=== PATIENT | male | born 1945 | race Caucasian/White ===

== ENCOUNTER 2016-07-26 14:35 | Emergency (ER) ==
[2016-07-26] MEDS ORDERED: NS 500 ML IV ONE (14:51)
--- NOTE | 2016-07-26 15:02 | PROVIDER DOCUMENTATION ---
HPI-Abdominal Pain/GI Problem - General Chief Complaint: Diarrhea Stated Complaint: GENERAL Time Seen by Provider: 07/26/16 14:44 Allergies/Adverse Reactions: Patient Allergies Allergy/AdvReac Type Severity Reaction Status Date / Time nitroglycerin Allergy HEADACHE Verified 07/26/16 15:21 montelukast sodium * AdvReac eyes water Verified 07/26/16 15:21 [From [facility]] Home Medications: Home Medication List Medication Instructions Recorded Confirmed Last Taken Type ATORVAstatin [Lipitor] 40 mg PO QHS 08/09/12 07/26/16 07/26/16 History Budesonide/Formoterol Inhaler 2 puff INH RTBID 08/09/12 07/26/16 07/26/16 09:00 History [Symbicort 160/4.5 Microgm Inhaler] Diltiazem HCl [Cartia Xt] 180 mg PO BID 08/09/12 07/26/16 07/26/16 09:00 History Glipizide [Glipizide Xl] 10 mg PO BID 08/09/12 07/26/16 07/26/16 09:00 History Losartan [Cozaar] 50 mg PO DAILY 05/08/14 07/26/16 07/26/16 09:00 History Digoxin 125 mcg PO DAILY 01/21/15 07/26/16 07/26/16 09:00 History Furosemide 40 mg PO DAILY 01/21/15 07/26/16 07/26/16 09:00 History Omeprazole 40 mg PO DAILY 01/21/15 07/26/16 07/26/16 06:00 History Warfarin [Coumadin] 2 mg PO QHS 01/21/15 07/26/16 07/21/16 History Metoprolol Succinate E.r. [Toprol 25 mg PO BID 05/03/16 07/26/16 07/26/16 09:00 History Xl] Hum Insulin NPH/Reg Insulin Hm 12 unit SQ QPM 06/22/16 07/26/16 07/25/16 16:00 History [Novolin 70-30 [place]] Acetaminophen [Tylenol] 1,000 mg PO Q6H #0 tablet 07/06/16 07/26/16 07/26/16 12: 00 Rx Albuterol 2.5MG/Ipratrop 0.5MG 3 ml INH Q4H PRN PRN #0 neb 07/06/16 07/26/16 Rx [Duoneb (A & A)] Docusate Sodium [Colace] 100 mg PO BID #0 capsule 07/06/16 07/26/16 07/26/16 09: 00 Rx Magnesium Hydroxide [Milk of 30 ml PO Q6H PRN PRN #0 udc 07/06/16 07/26/16 Unknown Rx Magnesia] Oxycodone I.r. [Oxy Ir] 5 - 10 mg PO Q3H PRN PRN #60 07/06/16 07/26/16 Unknown Rx capsule Polyethylene Glycol 3350 [Miralax] 17 gm PO DAILY #0 powder, packet 07/06/1607/26/16 09:00 Rx Pregabalin [Lyrica] 75 mg PO BID #60 capsule 07/06/16 07/26/16 07/26/16 09:00 Rx Simethicone Chew [Mylicon] 80 mg PO PRN PRN #0 tablet 07/06/16 07/26/16 Unknown Rx Tramadol [Ultram] 100 mg PO Q6H #120 tablet 07/06/16 07/26/16 07/26/16 12:00 Rx Hum Insulin NPH/Reg Insulin Hm 16 unit SQ QAM 07/26/16 07/26/16 07/26/16 08:00 History [Novolin 70-30 100 Unit/ml Vial] Loperamide HCl [Anti-Diarrhea] 2 mg PO Q6H #30 tablet 07/26/16 Unknown Rx Tamsulosin HCl 0.4 mg PO QHS 07/26/16 07/26/16 07/25/16 History - History of Present Illness-ABD Nature of Presenting Problems: Pt with prolonged stay in rehab after right total knee replacement. Has been having diarrhea lately that has worsened the last few days. Also with elevated INR. Patient is not sure why rehab sent him to the ER today. He has also had a cough for a few weeks. Is on supplemental O2 at rehab. Sat 91% on O2. Abdominal Pain Onset Location: reports: generalized abdomen Severity in ED: reports: mild Onset/Duration: reports: other (several weeks) Timing: reports: still present Associated Symptoms: reports: cough, diarrhea, fatigue, joint pain (right knee) , shortness of breath, weakness. denies: chest pain, fever/chills, sinus congestion/drainage, vomiting Last BM: this morning Dark Stools Present?: reports: none noticed Rectal Bleeding: denies: bleeding without stool, bloody diarrhea Review of Systems - Adult - REVIEW OF SYSTEMS - ADULT Constitutional: denies: chills, fever Eyes: reports: no symptoms reported Ears, Nose, Mouth & Throat: reports: no symptoms reported Cardiovascular: reports: no symptoms reported Respiratory: reports: cough, shortness of breath Gastrointestinal: reports: diarrhea. denies: abdominal pain, hematemesis, nausea, rectal bleeding, vomiting Genitourinary: denies: dysuria Musculoskeletal: reports: joint pain. denies: joint swelling Integumentary: reports: no symptoms reported Neurological: reports: no symptoms reported Psychiatric: reports: no symptoms reported Endocrine: reports: no symptoms reported Hematologic/Lymphatic: reports: no symptoms reported Allergic/Immunologic: reports: no symptoms reported All Other Systems: Reviewed and Negative Past History - Adult - PAST MEDICAL HISTORY-ADULT Review of Records: reports: Nursing Assessment Review, Medications Reviewed Cardiovascular: reports: A-Fib, CAD, HTN, hyperlipidemia, pacemaker, other ( dextrocardia) Respiratory: reports: COPD Endocrine/Immune: reports: Diabetes - PRIOR SURGERIES/PROCEDURES Surgical/Procedure History: reports: cholecystectomy, pacemaker, hernia repair - IMMUNIZATION STATUS Childhood Immunizations: See Nurse Assessment Flu Vaccine: See Nurse Assessment - SOCIAL HISTORY Smoking: non-smoker Physical Exam-General - PHYSICAL EXAM-ADULT Initial Vital Signs Reviewed: Yes - CONSTITUTIONAL General Appearance: appears well, alert, no apparent distress - EYES Eyes: PERRL/EOMI, pink conjunctivae - HEAD, EARS, NOSE, MOUTH & THROAT HENMT: normocephalic/atraumatic, other (dry MM's) - NECK Neck: non-tender, full range of motion, supple - RESPIRATORY Respiratory: no pleuratic chest pain, no respiratory distress, decreased breath sounds, wheezing (mild expiratory). negative: rales, rhonchi - CARDIOVASCULAR Cardiovascular: regular rate, rhythm, no gallop, no JVD - GASTROINTESTINAL (ABDOMEN) Abdominal Exam: soft, no organomegaly, no pulsatile mass, abnormal bowel sounds (hypoactive), distended (obese), tenderness (mild diffusely). negative: guarding, rigid, rebound - LYMPHATIC Lymphatic: no adenopathy. negative: enlargement - MUSCULOSKELETAL Back Exam: normal inspection, no CVA tenderness, no vertebral tenderness Extremity: normal range of motion, normal capillary refill, pedal edema (1+), tenderness (over right knee). negative: erythema - SKIN Integumentary: normal color, normal turgor, warm/dry, other (healing right knee surgical incision) - NEUROLOGIC Neurologic: grossly normal - PSYCHIATRIC Psych/Mental Status: normal mood/affect Progress - PLAN OF CARE/RESULTS Progress/Plan/Lab Results: Vital Signs Temp Pulse Resp BP Pulse Ox 07/26/16 16:20 92 H 22 07/26/16 14:41 98.2 F 92 H 22 150/66 96 nitroglycerin Allergy (Verified 07/26/16 15:21) HEADACHE [facility] Adverse Reaction (Verified 07/26/16 15:21) eyes water ATORVAstatin [Lipitor] 40 mg PO QHS 08/09/12 Budesonide/Formoterol Inhaler [Symbicort 160/4.5 Microgm Inhaler] 2 puff INH RTBID 08/09/12 Diltiazem HCl [Cartia Xt] 180 mg PO BID 08/09/12 Glipizide [Glipizide Xl] 10 mg PO BID 08/09/12 Losartan [Cozaar] 50 mg PO DAILY 05/08/14 Digoxin 125 mcg PO DAILY 01/21/15 Furosemide 40 mg PO DAILY 01/21/15 Omeprazole 40 mg PO DAILY 01/21/15 Warfarin [Coumadin] 2 mg PO QHS 01/21/15 Metoprolol Succinate E.r. [Toprol Xl] 25 mg PO BID 05/03/16 Hum Insulin NPH/Reg Insulin Hm [Novolin 70-30 [place]] 12 unit SQ QPM 06/22/16 Acetaminophen [Tylenol] 1,000 mg PO Q6H #0 tablet 07/06/16 Albuterol 2.5MG/Ipratrop 0.5MG [Duoneb (A & A)] 3 ml INH Q4H PRN PRN #0 neb 11/14 Docusate Sodium [Colace] 100 mg PO BID #0 capsule 07/06/16 Magnesium Hydroxide [Milk of Magnesia] 30 ml PO Q6H PRN PRN #0 udc 07/06/16 Oxycodone I.r. [Oxy Ir] 5 - 10 mg PO Q3H PRN PRN #60 capsule 07/06/16 Polyethylene Glycol 3350 [Miralax] 17 gm PO DAILY #0 powder, packet 07/06/16 Pregabalin [Lyrica] 75 mg PO BID #60 capsule 07/06/16 Simethicone Chew [Mylicon] 80 mg PO PRN PRN #0 tablet 07/06/16 Tramadol [Ultram] 100 mg PO Q6H #120 tablet 07/06/16 Hum Insulin NPH/Reg Insulin Hm [Novolin 70-30 100 Unit/ml Vial] 16 unit SQ QAM 07/26/16 Tamsulosin HCl 0.4 mg PO QHS 07/26/16 Laboratory 07/26/16 07/26/16 07/26/16 15:00 15:00 15:00 WBC 12.22 H RBC 4.54 L Hgb 12.7 L Hct 40.3 L MCV 88.8 MCH 28.0 MCHC 31.5 L RDW Std Deviation 18.2 H Plt Count 289 MPV 12.2 H Immature Gran % (Auto) 0.5 Neut % (Auto) 75.0 Lymph % (Auto) 13.5 L [place] % (Auto) 9.3 Eos % (Auto) 1.5 Baso % (Auto) 0.2 Immature Gran # (Auto) 0.06 H Neut # (Auto) 9.17 H Lymph # (Auto) 1.65 [place] # (Auto) 1.14 H Eos # (Auto) 0.18 Baso # (Auto) 0.02 PT 45.5 H INR 4.23 PTT (Actin FS) 51.0 H Sodium 147 H Potassium 3.8 Chloride 106 Carbon Dioxide 29 Anion Gap 12 BUN 41 H Creatinine 2.1 H Estimated GFR/1.73 m2 31 BUN/Creatinine Ratio 20 Glucose 74 Calculated Osmolality 301 Calcium 8.4 L Total Bilirubin 0.27 AST 31 ALT 42 Alkaline Phosphatase 92 Total Protein 6.8 Albumin 2.9 L Globulin 3.9 Albumin/Globulin Ratio 0.7 - XRAY 1 XRAY Study: Chest, Abdomen Impression: Normal Departure - Departure Time of Disposition Order: 17:17 DIAGNOSIS: Diarrhea Qualifiers: Diarrhea type: unspecified type Qualified Code(s): R19.7 - Diarrhea, unspecified DIAGNOSIS: (Ruled Out): C. difficile colitis Disposition: HOME 01 Certified Medical Emergency: Emergent Condition: Stable Additional Instructions: Increase fluids. ED Follow Up Instructions: You have been treated by a care provider in the Emergency Department. These instructions are being provided to you so you can have an understanding of how to care for yourself upon discharge. Upon discharge from the Emergency Department, you are responsible for making arrangements for follow-up care by a physician of your choice. Take all prescribed medications as directed. Return to the Emergency Department immediately for any new or worsening symptoms. You may call the Physician Referral phone number at [phone] to obtain a list of Physicians who are taking new patients. Prescriptions: Loperamide HCl [Anti-Diarrhea] 2 mg PO Q6H #30 tablet
[2016-07-26] MEDS ORDERED: DUONEB (A & A) INH ONE (15:07)
[2016-07-26 15:23] LABS: MANUAL DIFF NEEDED? NO
[2016-07-26 15:27] LABS: BASO% 0.2 % (0.0-0.8); EOS# 0.18 X1000 (0.0-0.7); EOS% 1.5 % (0.0-10.0); HEMATOCRIT 40.3 % (42.0-52.0); HEMOGLOBIN 12.7 g/dL (14.0-18.0); IMM GRAN# 0.06 X1000 (0.0-0.04); IMM GRAN% 0.5 % (0.0-0.5); LYMPH# 1.65 X1000 (1.2-3.4); LYMPH% 13.5 % (20.5-51.1); MCHC 31.5 g/dL (33-37); MCV 88.8 FL (81-99); MONO# 1.14 X1000 (0.11-0.59); MONO% 9.3 % (1.7-9.3); MPV 12.2 FL (7.4-10.4); PLT 289 X1000 (130-400); RBC 4.54 XMIL (4.7-6.1)
[2016-07-26 15:47] LABS: INR 4.23; PROTIME 45.5 Seconds (9.2-11.7)
[2016-07-26 15:53] LABS: ALBUMIN 2.9 g/dL (3.5-5.0); CALCIUM 8.4 mg/dL (8.8-10.2); POTASSIUM 3.8 mmol/L (3.5-5.1); TOTAL BILIRUBIN 0.27 mg/dL (0.20-1.00); TOTAL PROTEIN 6.8 g/dL (6.3-8.3)
--- NOTE | 2016-07-26 16:25 | Diag Imaging Result Document ---
PROCEDURE NAME: FLAT/UPRIGHT ABD/1 VIEW CHEST - 07/26/2016 FLAT AND UPRIGHT ABDOMEN: FINDINGS: There is gas throughout the colon. The stomach is not distended and there is no evidence of small bowel dilatation. There is no evidence of organomegaly or mass. There is severe degenerative change in the right hip. IMPRESSION: Nonspecific abdomen. No evidence of obstruction. AP CHEST: FINDINGS: There is dextrocardia. There is an epicardial pacemaker present on the right. There are calcifications in the left pleura. Overall, there has been no significant change in the appearance of the chest since 07/02/2016. IMPRESSION: Stable chest.
[2016-07-26] MEDS ORDERED: IMODIUM PO ONE (17:20)
[2016-07-26 17:51] VITALS: BP 149/61
== END 2016-07-26 19:08 ==
LOC: EDBD → ED 14:35
DX: R19.7 Diarrhea, unspecified (principal); R05 Cough; R53.83 Other fatigue; M25.561 Pain in right knee; R06.02 Shortness of breath; R53.1 Weakness; R06.2 Wheezing; R19.15 Other abnormal bowel sounds; Z79.899 Other long term (current) drug therapy; R14.0 Abdominal distension (gaseous); R10.819 Abdominal tenderness, unspecified site; R60.0 Localized edema; I48.91 Unspecified atrial fibrillation; I10 Essential (primary) hypertension; E78.5 Hyperlipidemia, unspecified; J44.9 Chronic obstructive pulmonary disease, unspecified; E11.9 Type 2 diabetes mellitus without complications; Z79.01 Long term (current) use of anticoagulants; Z79.4 Long term (current) use of insulin; Z95.0 Presence of cardiac pacemaker; Z96.651 Presence of right artificial knee joint; Z99.81 Dependence on supplemental oxygen
CPT/HCPCS: 74022; 80053; 85025; 85610; 85730; 87040; 87324; 94640; J7040

== ENCOUNTER 2016-07-28 12:31 | Emergency (ER) ==
--- NOTE | 2016-07-28 13:01 | PROVIDER DOCUMENTATION ---
HPI-General Adult - General Source: patient - History of Present Illness -Gen Adult Nature of Presenting Problems: Patient is a71 y/o M that presents to the ER with generalized weakness, shortness of breath, and diarrhea. HE was seen 2 days ago for the diarrhea and treated in the ER. patient just finished a 21 day rehab for knee replacement. He denies chest pain or fever/chills. No n/v Location of Pain/Injury: reports: generalized Pain Radiation: reports: no radiation Quality of Pain: reports: aching Severity: reports: mild Onset/Duration: reports: unsure Timing: reports: still present, constant Context/Activities at Onset: reports: other (recent surgery) Modifying Factors: improves with: nothing Associated Symptoms: reports: diarrhea, shortness of breath, weakness. denies: back/neck pain, chest pain, constipation, dizziness, fever/chills, genitourinary problems, nausea Similar Symptoms Previously?: Yes Recently seen or treated by another doctor?: Yes <Praneeth Andrade - Last Filed: 07/28/16 16:48> <Demetrio Franz I - Last Filed: 07/28/16 16:56> - General Chief Complaint: General Adult Stated Complaint: WEAKNESS Time Seen by Provider: 07/28/16 12:36 Allergies/Adverse Reactions: Patient Allergies Allergy/AdvReac Type Severity Reaction Status Date / Time nitroglycerin Allergy HEADACHE Verified 07/28/16 12:46 montelukast sodium * AdvReac eyes water Verified 07/28/16 12:46 [From [facility]] Home Medications: Home Medication List Medication Instructions Recorded Confirmed Last Taken Type ATORVAstatin [Lipitor] 40 mg PO QHS 08/09/12 07/28/16 07/27/16 History Budesonide/Formoterol Inhaler 2 puff INH RTBID 08/09/12 07/28/16 07/28/16 History [Symbicort 160/4.5 Microgm Inhaler] Diltiazem HCl [Cartia Xt] 180 mg PO BID 08/09/12 07/28/16 07/28/16 History Glipizide [Glipizide Xl] 10 mg PO BID 08/09/12 07/28/16 07/28/16 History Losartan [Cozaar] 50 mg PO DAILY 05/08/14 07/28/1617 History Digoxin 125 mcg PO DAILY 01/21/15 07/28/16 07/28/16 History Furosemide 40 mg PO DAILY 01/21/15 07/28/16 07/28/16 History Omeprazole 40 mg PO DAILY 01/21/15 07/28/16 07/28/16 History Warfarin [Coumadin] 2 mg PO QHS 01/21/15 07/28/16 07/27/16 History Metoprolol Succinate E.r. [Toprol 25 mg PO BID 05/03/16 07/28/16 07/28/16 History Xl] Hum Insulin NPH/Reg Insulin Hm 12 unit SQ QPM 06/22/16 07/28/16 07/28/16 History [Novolin 70-30 [place]] Acetaminophen [Tylenol] 1,000 mg PO Q6H #0 tablet 07/06/16 07/28/16 07/28/16 Rx Albuterol 2.5MG/Ipratrop 0.5MG 3 ml INH Q4H PRN PRN #0 neb 07/06/16 07/28/16 Rx [Duoneb (A & A)] Docusate Sodium [Colace] 100 mg PO BID #0 capsule 07/06/16 07/28/16 07/28/16 Rx Magnesium Hydroxide [Milk of 30 ml PO Q6H PRN PRN #0 udc 07/06/16 07/28/1607/28 Rx Magnesia] Oxycodone I.r. [Oxy Ir] 5 - 10 mg PO Q3H PRN PRN #60 07/06/16 07/28/16 07/28/16 Rx capsule Polyethylene Glycol 3350 [Miralax] 17 gm PO DAILY #0 powder, packet 07/06/1607/28/16 Rx Pregabalin [Lyrica] 75 mg PO BID #60 capsule 07/06/16 07/28/16 07/28/16 Rx Simethicone Chew [Mylicon] 80 mg PO PRN PRN #0 tablet 07/06/16 07/28/16 Rx Tramadol [Ultram] 100 mg PO Q6H #120 tablet 07/06/16 07/28/16 07/28/16 Rx Hum Insulin NPH/Reg Insulin Hm 16 unit SQ QAM 07/26/16 07/28/16 07/28/16 History [Novolin 70-30 100 Unit/ml Vial] Loperamide HCl [Anti-Diarrhea] 2 mg PO Q6H #30 tablet 07/26/16 07/28/16 Rx Tamsulosin HCl 0.4 mg PO QHS 07/26/16 07/28/16 07/27/16 History Review of Systems - Adult - REVIEW OF SYSTEMS - ADULT Constitutional: reports: fatique. denies: chills, fever Eyes: reports: no symptoms reported Ears, Nose, Mouth & Throat: reports: no symptoms reported Cardiovascular: denies: chest pain, palpitations, syncope Respiratory: reports: shortness of breath. denies: cough, wheezing Gastrointestinal: reports: diarrhea. denies: abdominal pain, nausea, vomiting Genitourinary: reports: no symptoms reported Musculoskeletal: reports: muscle weakness. denies: joint swelling Integumentary: reports: no symptoms reported Neurological: reports: no symptoms reported Psychiatric: reports: no symptoms reported Endocrine: reports: no symptoms reported Hematologic/Lymphatic: reports: no symptoms reported Allergic/Immunologic: reports: no symptoms reported All Other Systems: Reviewed and Negative <Praneeth Andrade - Last Filed: 07/28/16 16:48> Past History - Adult - PAST MEDICAL HISTORY-ADULT Review of Records: reports: Old Records Reviewed, Nursing Assessment Review, Medications Reviewed Major Childhood Illnesses: reports: denies history Cardiovascular: reports: A-Fib, CAD, HTN, hyperlipidemia, pacemaker, other ( dextrocardia) Respiratory: reports: COPD Gastrointestinal: reports: denies history Obstetrical/Gynecological: reports: denies history Genitourinary: reports: denies history Musculoskeletal: reports: denies history Neurological: reports: denies history Endocrine/Immune: reports: Diabetes Other Conditions: reports: denies history - PRIOR SURGERIES/PROCEDURES Surgical/Procedure History: reports: cholecystectomy, pacemaker, hernia repair - IMMUNIZATION STATUS Childhood Immunizations: See Nurse Assessment Flu Vaccine: See Nurse Assessment - SOCIAL HISTORY Living Situation: family <Praneeth Andrade - Last Filed: 07/28/16 16:48> Physical Exam-General - PHYSICAL EXAM-ADULT Initial Vital Signs Reviewed: Yes - CONSTITUTIONAL General Appearance: alert, other (ill appearing) - EYES Eyes: PERRL/EOMI, pink conjunctivae - HEAD, EARS, NOSE, MOUTH & THROAT HENMT: normocephalic/atraumatic, moist mucous membranes, normal ENT inspection - NECK Neck: full range of motion, normal inspection. negative: lymphadenopathy - RESPIRATORY Respiratory: lungs clear, normal breath sounds, no respiratory distress, no accessory muscle use - CARDIOVASCULAR Cardiovascular: regular rate, rhythm, no edema, no murmur - GASTROINTESTINAL (ABDOMEN) Abdominal Exam: normal bowel sounds, non tender, soft, no organomegaly, no pulsatile mass - MUSCULOSKELETAL Extremity: no pedal edema, no calf tenderness, normal capillary refill, pelvis stable. negative: joint effusion - SKIN Integumentary: normal color, warm/dry - NEUROLOGIC Neurologic: grossly normal, no motor/sensory deficits - PSYCHIATRIC Psych/Mental Status: normal mood/affect, normal thought content, normal thought process, oriented x 3 <Praneeth Andrade - Last Filed: 07/28/16 16:48> Progress - PLAN OF CARE/RESULTS Progress/Plan/Lab Results: Vital Signs Temp Pulse Resp BP Pulse Ox 07/28/16 15:03 82 18 143/63 95 07/28/16 12:32 98.5 F 96 H 18 137/84 93 L nitroglycerin Allergy (Verified 07/28/16 12:46) HEADACHE montelukast sodium * [From [facility]] Adverse Reaction (Verified 07/28/16 12:46) eyes water ATORVAstatin [Lipitor] 40 mg PO QHS 08/09/12 Budesonide/Formoterol Inhaler [Symbicort 160/4.5 Microgm Inhaler] 2 puff INH RTBID 08/09/12 Diltiazem HCl [Cartia Xt] 180 mg PO BID 08/09/12 Glipizide [Glipizide Xl] 10 mg PO BID 08/09/12 Losartan [Cozaar] 50 mg PO DAILY 05/08/14 Digoxin 125 mcg PO DAILY 01/21/15 Furosemide 40 mg PO DAILY 01/21/15 Omeprazole 40 mg PO DAILY 01/21/15 Warfarin [Coumadin] 2 mg PO QHS 01/21/15 Metoprolol Succinate E.r. [Toprol Xl] 25 mg PO BID 05/03/16 Hum Insulin NPH/Reg Insulin Hm [Novolin 70-30 [place]] 12 unit SQ QPM 06/22/16 Acetaminophen [Tylenol] 1,000 mg PO Q6H #0 tablet 07/06/16 Albuterol 2.5MG/Ipratrop 0.5MG [Duoneb (A & A)] 3 ml INH Q4H PRN PRN #0 neb 11/14 Docusate Sodium [Colace] 100 mg PO BID #0 capsule 07/06/16 Magnesium Hydroxide [Milk of Magnesia] 30 ml PO Q6H PRN PRN #0 udc 07/06/16 Oxycodone I.r. [Oxy Ir] 5 - 10 mg PO Q3H PRN PRN #60 capsule 07/06/16 Polyethylene Glycol 3350 [Miralax] 17 gm PO DAILY #0 powder, packet 07/06/16 Pregabalin [Lyrica] 75 mg PO BID #60 capsule 07/06/16 Simethicone Chew [Mylicon] 80 mg PO PRN PRN #0 tablet 07/06/16 Tramadol [Ultram] 100 mg PO Q6H #120 tablet 07/06/16 Hum Insulin NPH/Reg Insulin Hm [Novolin 70-30 100 Unit/ml Vial] 16 unit SQ QAM 07/26/16 Loperamide HCl [Anti-Diarrhea] 2 mg PO Q6H #30 tablet 07/26/16 Tamsulosin HCl 0.4 mg PO QHS 07/26/16 Laboratory 07/28/16 07/28/16 07/28/16 13:26 13:26 13:26 WBC 10.24 RBC 3.90 L Hgb 10.8 L Hct 34.4 L MCV 88.2 MCH 27.7 MCHC 31.4 L RDW Std Deviation 17.5 H Plt Count 238 MPV 12.1 H Immature Gran % (Auto) 0.3 Neut % (Auto) 65.4 Lymph % (Auto) 24.1 [place] % (Auto) 9.2 Eos % (Auto) 0.7 Baso % (Auto) 0.3 Immature Gran # (Auto) 0.03 Neut # (Auto) 6.70 H Lymph # (Auto) 2.47 [place] # (Auto) 0.94 H Eos # (Auto) 0.07 Baso # (Auto) 0.03 PT 26.6 H D INR 2.49 D PTT (Actin FS) 41.6 H Sodium 147 H Potassium 4.1 Chloride 108 H Carbon Dioxide 28 Anion Gap 11 BUN 36 H Creatinine 2.2 H Estimated GFR/1.73 m2 30 BUN/Creatinine Ratio 16 Glucose 184 H D Calculated Osmolality 305 Calcium 8.2 L Total Bilirubin 0.41 AST 24 ALT 30 Alkaline Phosphatase 73 Total Protein 6.1 L Albumin 2.4 L Globulin 3.7 Albumin/Globulin Ratio 0.6 Lipase 26 Orders Category Date Time Status CBC WITH DIFF [HEME] Stat Lab 07/28/16 13:26 Completed COMPREHENSIVE METABOLIC PANEL [CHEM] Stat Lab 07/28/16 13:26 Completed LIPASE [CHEM] Stat Lab 07/28/16 13:26 Completed PROTIME WITH INR [COAG] Stat Lab 07/28/16 13:26 Completed PTT [COAG] Stat Lab 07/28/16 13:26 Completed 0.9% Sodium Chloride Inj [Ns] 1,000 ml Med 07/28/16 14:44 Discontinued IV 999 mls/hr pt will be d/c home , f/u with pcp, Pt was clinically stable, family understood instructions. <Praneeth Andrade - Last Filed: 07/28/16 16:48> Departure - Departure Time of Disposition Order: 16:52 Certified Medical Emergency: Emergent <Praneeth Andrade - Last Filed: 07/28/16 16:48> - Departure Time of Disposition Order: 16:55 Certified Medical Emergency: Emergent <Demetrio Franz I - Last Filed: 07/28/16 16:56> - Departure DIAGNOSIS: Viral syndrome, Gastroenteritis, Weakness Disposition: HOME 01 Condition: Stable Additional Instructions: ED Follow Up Instructions: You have been treated by a care provider in the Emergency Department. These instructions are being provided to you so you can have an understanding of how to care for yourself upon discharge. Upon discharge from the Emergency Department, you are responsible for making arrangements for follow-up care by a physician of your choice. Take all prescribed medications as directed. Return to the Emergency Department immediately for any new or worsening symptoms. You may call the Physician Referral phone number at [phone] to obtain a list of Physicians who are taking new patients. Referrals: Fabio Hernández MD [Primary Care Provider] - Call for Appoint. 1-2days Instructions: Viral Gastroenteritis, [id number] Attestation - Scribe Verification/Attestation Scribe:: Praneeth Andrade Acting as Scribe for:: Demetrio Franz Scribe documention review:: This chart was documented by a scribe and accurately reflects the service the provider performed and the decisions made by the provider. <Praneeth Andrade - Last Filed: 07/28/16 16:48> Physician Attestation - Physician Attestation I, the provider, attest to the following statement:: Demetrio Franz Physician documentation Attestation:: This documentation recorded by the scribe accurately reflects the service I personally performed and the decisions made by me. <Praneeth Andrade - Last Filed: 07/28/16 16:48> - Physician Attestation I, the provider, attest to the following statement:: Demetrio Franz Physician documentation Attestation:: This documentation recorded by the scribe accurately reflects the service I personally performed and the decisions made by me. <Demetrio Franz I - Last Filed: 07/28/16 16:56>
[2016-07-28 13:29] LABS: MANUAL DIFF NEEDED? NO
[2016-07-28 13:38] LABS: BASO% 0.3 % (0.0-0.8); EOS# 0.07 X1000 (0.0-0.7); EOS% 0.7 % (0.0-10.0); HEMATOCRIT 34.4 % (42.0-52.0); HEMOGLOBIN 10.8 g/dL (14.0-18.0); IMM GRAN# 0.03 X1000 (0.0-0.04); IMM GRAN% 0.3 % (0.0-0.5); LYMPH# 2.47 X1000 (1.2-3.4); LYMPH% 24.1 % (20.5-51.1); MCH 27.7 PG (27-31); MCHC 31.4 g/dL (33-37); MCV 88.2 FL (81-99); MONO# 0.94 X1000 (0.11-0.59); MONO% 9.2 % (1.7-9.3); MPV 12.1 FL (7.4-10.4); NEUT% 65.4 % (42.2-75.2); PLT 238 X1000 (130-400)
[2016-07-28 13:56] LABS: ALBUMIN 2.4 g/dL (3.5-5.0); CALCIUM 8.2 mg/dL (8.8-10.2); POTASSIUM 4.1 mmol/L (3.5-5.1); TOTAL BILIRUBIN 0.41 mg/dL (0.20-1.00); TOTAL PROTEIN 6.1 g/dL (6.3-8.3)
[2016-07-28 14:16] LABS: INR 2.49; PROTIME 26.6 Seconds (9.2-11.7); PTT 41.6 Seconds (22.0-36.0)
[2016-07-28] MEDS ORDERED: NS 1,000 ML IV ONE (14:44)
[2016-07-28 16:58] VITALS: BP 145/56
== END 2016-07-28 17:29 | disposition home or self-care (01) ==
LOC: EDBD → ED 12:31
DX: K52.9 Noninfective gastroenteritis and colitis, unspecified (principal); B34.9 Viral infection, unspecified; M62.81 Muscle weakness (generalized); R06.02 Shortness of breath; R19.7 Diarrhea, unspecified; R53.83 Other fatigue; I48.91 Unspecified atrial fibrillation; I25.10 Atherosclerotic heart disease of native coronary artery without angina pectoris; Z79.899 Other long term (current) drug therapy; I10 Essential (primary) hypertension; E78.5 Hyperlipidemia, unspecified; J44.9 Chronic obstructive pulmonary disease, unspecified; E11.9 Type 2 diabetes mellitus without complications; Z79.01 Long term (current) use of anticoagulants; Z79.4 Long term (current) use of insulin; Z95.0 Presence of cardiac pacemaker
CPT/HCPCS: 80053; 83690; 85025; 85610; 85730; J7030

== ENCOUNTER 2016-08-03 10:47 | Inpatient (IN) ==
--- NOTE | 2016-08-03 11:26 | PROVIDER DOCUMENTATION ---
Addendum entered and electronically signed by Heather Martino Scribe 08/03/16 16:36 : Progress - ULTRASOUND (By Radiology) 1 US Study: Lower Ext Impression: Abnormal US Results: bilateral acute DVTs Addendum entered and electronically signed by Heather Martino Scribe 08/03/16 14:08 : Progress - PLAN OF CARE/RESULTS Progress/Plan/Lab Results: Laboratory Tests 08/03/16 08/03/16 08/03/16 11:47 11:47 11:47 WBC 12.03 H RBC 3.69 L Hgb 10.0 L Hct 32.3 L MCV 87.5 MCH 27.1 MCHC 31.0 L RDW Std Deviation 16.8 H Plt Count 253 MPV 12.0 H Immature Gran % (Auto) 0.7 H Neut % (Auto) 67.1 Lymph % (Auto) 21.7 [place] % (Auto) 9.0 Eos % (Auto) 1.3 Baso % (Auto) 0.2 Immature Gran # (Auto) 0.09 H Neut # (Auto) 8.06 H Lymph # (Auto) 2.61 [place] # (Auto) 1.08 H Eos # (Auto) 0.16 Baso # (Auto) 0.03 PT INR D-Dimer 6.37 H Specimen Type Sample Site pH pCO2 pO2 HCO3 Base Excess Oxyhemoglobin ABG O2 Sat (Calculated) ABG O2 Saturation ABG Carboxyhemoglobin ABG Methemoglobin Romie Test A-a O2 Difference Total Hemoglobin Lactate Blood Gas Modality FiO2 % Sodium 141 Potassium 3.2 L Chloride 104 Carbon Dioxide 24 L Anion Gap 12 BUN 38 H Creatinine 3.2 H Estimated GFR/1.73 m2 19 BUN/Creatinine Ratio 12 Glucose 229 H Calculated Osmolality 298 Calcium 8.1 L Total Bilirubin 0.50 AST 30 ALT 45 H Alkaline Phosphatase 83 Total Protein 6.3 Albumin 2.3 L Globulin 4.0 Albumin/Globulin Ratio 1.0 Urine Source Urine Color Urine Clarity Urine pH Ur Specific Bernice Urine Protein Urine Ketones Urine Blood Urine Nitrite Urine Bilirubin Urine Urobilinogen Urine Microscopic RBC Urine WBC Urine Microscopic WBC Ur Epithelial Cells Urine Bacteria Urine Yeast Urine Glucose 08/03/16 08/03/16 08/03/16 11:47 11:48 12:15 WBC RBC Hgb Hct MCV MCH MCHC RDW Std Deviation Plt Count MPV Immature Gran % (Auto) Neut % (Auto) Lymph % (Auto) [place] % (Auto) Eos % (Auto) Baso % (Auto) Immature Gran # (Auto) Neut # (Auto) Lymph # (Auto) [place] # (Auto) Eos # (Auto) Baso # (Auto) PT 16.3 H INR 1.28 H D-Dimer Specimen Type ARTERIAL Sample Site R RADIAL pH 7.43 pCO2 46 H pO2 61 HCO3 28.8 H Base Excess 5.3 H Oxyhemoglobin 89.2 L* ABG O2 Sat (Calculated) 16.7 ABG O2 Saturation 92.2 L ABG Carboxyhemoglobin 2.30 ABG Methemoglobin 1.0 Romie Test YES A-a O2 Difference 31.0 Total Hemoglobin 13.3 Lactate 0.90 Blood Gas Modality ROOM AIR FiO2 % 21.0 Sodium Potassium Chloride Carbon Dioxide Anion Gap BUN Creatinine Estimated GFR/1.73 m2 BUN/Creatinine Ratio Glucose Calculated Osmolality Calcium Total Bilirubin AST ALT Alkaline Phosphatase Total Protein Albumin Globulin Albumin/Globulin Ratio Urine Source CLEAN CATCH Urine Color YELLOW Urine Clarity VERY CLOUDY A Urine pH 5.0 Ur Specific Bernice 1.015 Urine Protein TRACE A Urine Ketones NEGATIVE Urine Blood TRACE Urine Nitrite NEGATIVE Urine Bilirubin NEGATIVE Urine Urobilinogen NORMAL Urine Microscopic RBC <10 Urine WBC 2+ A Urine Microscopic WBC 20-40 A Ur Epithelial Cells <10 Urine Bacteria NEGATIVE Urine Yeast PRESENT Urine Glucose NEGATIVE Original Note: HPI-General Adult - General Source: patient - History of Present Illness -Gen Adult Nature of Presenting Problems: Pt is 71 y/o M presents to the ED with cough and weakness. Pt states symptoms have been present for three days. Pt denies F. Location of Pain/Injury: reports: generalized Pain Radiation: reports: no radiation Quality of Pain: reports: aching Severity: reports: mild Onset/Duration: reports: 3 days ago Timing: reports: still present Context/Activities at Onset: reports: light activity Modifying Factors: improves with: nothing Associated Symptoms: reports: cough, weakness, trouble walking. denies: anxiety , arm pain, back/neck pain, chest pain, constipation, diaphoresis, diarrhea, dizziness, EENT symptoms, fatigue, fever/chills, genitourinary problems, headaches, heartburn, loss of appetite, malaise, muscle aches, sinus congestion/ drainage, nausea, rash, seizure, shortness of breath, sensory/motor loss, pain with inspiration, swelling/mass in abdomen, syncope, vomiting Similar Symptoms Previously?: Yes Recently seen or treated by another doctor?: No <Heather Martino - Last Filed: 08/03/16 13:53> <René Crowell - Last Filed: 08/03/16 14:06> - General Chief Complaint: Abnormal Lab[s] Stated Complaint: LOW O2 SAT Time Seen by Provider: 08/03/16 11:19 Allergies/Adverse Reactions: Patient Allergies Allergy/AdvReac Type Severity Reaction Status Date / Time nitroglycerin Allergy HEADACHE Verified 08/03/16 10:52 montelukast sodium * AdvReac eyes water Verified 08/03/16 10:52 [From [facility]] Home Medications: Home Medication List Medication Instructions Recorded Confirmed Last Taken Type ATORVAstatin [Lipitor] 40 mg PO QHS 08/09/12 08/03/16 07/27/16 History Budesonide/Formoterol Inhaler 2 puff INH RTBID 08/09/12 08/03/16 07/28/16 History [Symbicort 160/4.5 Microgm Inhaler] Diltiazem HCl [Cartia Xt] 180 mg PO BID 08/09/12 08/03/16 07/28/16 History Glipizide [Glipizide Xl] 10 mg PO BID 08/09/12 08/03/16 07/28/16 History Losartan [Cozaar] 50 mg PO DAILY 05/08/14 08/03/16 07/28/16 History Digoxin 125 mcg PO DAILY 01/21/15 08/03/16 07/28/16 History Furosemide 40 mg PO DAILY 01/21/15 08/03/16 07/28/16 History Omeprazole 40 mg PO DAILY 01/21/15 08/03/16 07/28/16 History Warfarin [Coumadin] 2 mg PO QHS 01/21/15 08/03/16 07/27/16 History Metoprolol Succinate E.r. [Toprol 25 mg PO BID 05/03/16 08/03/16 07/28/16 History Xl] Hum Insulin NPH/Reg Insulin Hm 12 unit SQ QPM 06/22/16 08/03/16 07/28/16 History [Novolin 70-30 [place]] Acetaminophen [Tylenol] 1,000 mg PO Q6H #0 tablet 07/06/16 08/03/16 07/28/16 Rx Albuterol 2.5MG/Ipratrop 0.5MG 3 ml INH Q4H PRN PRN #0 neb 07/06/16 08/03/16 Rx [Duoneb (A & A)] Docusate Sodium [Colace] 100 mg PO BID #0 capsule 07/06/16 08/03/16 07/28/16 Rx Magnesium Hydroxide [Milk of 30 ml PO Q6H PRN PRN #0 udc 07/06/16 08/03/1607/28 Rx Magnesia] Oxycodone I.r. [Oxy Ir] 5 - 10 mg PO Q3H PRN PRN #60 07/06/16 08/03/16 07/28/16 Rx capsule Polyethylene Glycol 3350 [Miralax] 17 gm PO DAILY #0 powder, packet 07/06/1611/1407/28/16 Rx Pregabalin [Lyrica] 75 mg PO BID #60 capsule 07/06/16 08/03/16 07/28/16 Rx Simethicone Chew [Mylicon] 80 mg PO PRN PRN #0 tablet 07/06/16 08/03/16 Rx Tramadol [Ultram] 100 mg PO Q6H #120 tablet 07/06/16 08/03/16 07/28/16 Rx Hum Insulin NPH/Reg Insulin Hm 16 unit SQ QAM 07/26/16 08/03/16 07/28/16 History [Novolin 70-30 100 Unit/ml Vial] Loperamide HCl [Anti-Diarrhea] 2 mg PO Q6H #30 tablet 07/26/16 08/03/16 Rx Tamsulosin HCl 0.4 mg PO QHS 07/26/16 08/03/16 07/27/16 History Review of Systems - Adult - REVIEW OF SYSTEMS - ADULT Constitutional: denies: chills, fever Eyes: denies: blurred vision, double vision Ears, Nose, Mouth & Throat: denies: ear pain, nose pain, throat pain Cardiovascular: reports: irregular heart rate (pérez). denies: chest pain, heart murmur Respiratory: reports: cough. denies: shortness of breath, wheezing Gastrointestinal: denies: abdominal pain, diarrhea, nausea, vomiting Genitourinary: denies: dysuria, hematuria Musculoskeletal: reports: muscle weakness. denies: bone pain, joint pain, neck pain Integumentary: denies: hives, itching Neurological: denies: dizziness/vertigo, headache/migraines Psychiatric: reports: no symptoms reported Endocrine: reports: no symptoms reported Hematologic/Lymphatic: reports: no symptoms reported Allergic/Immunologic: reports: no symptoms reported All Other Systems: Reviewed and Negative <Dian Martinoomi - Last Filed: 08/03/16 13:53> Past History - Adult - PAST MEDICAL HISTORY-ADULT Review of Records: reports: Nursing Assessment Review, Medications Reviewed, Social history reviewed & non-contributory. Major Childhood Illnesses: reports: denies history Cardiovascular: reports: A-Fib, CAD, HTN, hyperlipidemia, pacemaker, other ( dextrocardia) Respiratory: reports: COPD, sleep apnea Gastrointestinal: reports: GERD Obstetrical/Gynecological: reports: denies history Genitourinary: reports: kidney disease Musculoskeletal: reports: denies history Neurological: reports: denies history Endocrine/Immune: reports: Diabetes Other Conditions: reports: denies history - PRIOR SURGERIES/PROCEDURES Surgical/Procedure History: reports: cholecystectomy, pacemaker, hernia repair, joint replacement - IMMUNIZATION STATUS Childhood Immunizations: See Nurse Assessment Flu Vaccine: See Nurse Assessment - FAMILY HISTORY Family History: reviewed, not pertinent - SOCIAL HISTORY Smoking: denies Substance Use: denies Living Situation: family <Jenna Martinoi - Last Filed: 08/03/16 13:53> Physical Exam-General - PHYSICAL EXAM-ADULT Initial Vital Signs Reviewed: Yes - CONSTITUTIONAL General Appearance: alert, no apparent distress. negative: appears well (ill in appearance) - EYES Eyes: PERRL/EOMI, pink conjunctivae, fundi clear, no AV nicking - HEAD, EARS, NOSE, MOUTH & THROAT HENMT: normocephalic/atraumatic, moist mucous membranes, normal ENT inspection, TMs normal, pharynx normal - NECK Neck: non-tender, full range of motion, supple, normal inspection - RESPIRATORY Respiratory: chest non-tender, lungs clear, normal breath sounds, no pleuratic chest pain, no respiratory distress, no accessory muscle use - CARDIOVASCULAR Cardiovascular: normal peripheral pulses, no edema, no gallop, no JVD, no murmur , bradycardia - GASTROINTESTINAL (ABDOMEN) Abdominal Exam: normal bowel sounds, non tender, soft, no organomegaly, no pulsatile mass - LYMPHATIC Lymphatic: no adenopathy - MUSCULOSKELETAL Back Exam: normal inspection, no CVA tenderness, no vertebral tenderness Extremity: normal range of motion, no pedal edema, no calf tenderness - SKIN Integumentary: normal turgor, warm/dry, pallor - NEUROLOGIC Neurologic: grossly normal - PSYCHIATRIC Psych/Mental Status: normal mood/affect, oriented x 3 <Heather Martino - Last Filed: 08/03/16 13:53> Progress - PLAN OF CARE/RESULTS Progress/Plan/Lab Results: Orders Category Date Time Status cxr [CHEST-2 VIEWS] [RAD] Stat Exams 08/03/16 11:29 Ordered CBC WITH ELECTRONIC DIFF [HEME] Stat Lab 08/03/16 11:27 Uncollected CMP [COMPREHENSIVE METABOLIC PANEL] [CHEM] Stat Lab 08/03/16 11:27 Ordered Ddimer [D-DIMER PL] [COAG] Stat Lab 08/03/16 11:28 Ordered PROTIME WITH INR PL [COAG] Stat Lab 08/03/16 11:28 Uncollected UA NIMS W/REFLEX CULT PL [URINALYSIS] Stat Lab 08/03/16 11:28 Uncollected Vital Signs - 24 hr 08/03/16 10:48 Temperature 98.5 F Pulse Rate 57 L Respiratory 16 Rate Blood Pressure 122/055 O2 Sat by Pulse 98 Oximetry Laboratory Tests 08/03/16 11:47 PT 16.3 H INR 1.28 H Laboratory Tests 08/03/16 08/03/16 08/03/16 11:47 11:47 11:47 WBC 12.03 H RBC 3.69 L Hgb 10.0 L Hct 32.3 L MCV 87.5 MCH 27.1 MCHC 31.0 L RDW Std Deviation 16.8 H Plt Count 253 MPV 12.0 H Immature Gran % (Auto) 0.7 H Neut % (Auto) 67.1 Lymph % (Auto) 21.7 [place] % (Auto) 9.0 Eos % (Auto) 1.3 Baso % (Auto) 0.2 Immature Gran # (Auto) 0.09 H Neut # (Auto) 8.06 H Lymph # (Auto) 2.61 [place] # (Auto) 1.08 H Eos # (Auto) 0.16 Baso # (Auto) 0.03 PT INR D-Dimer 6.37 H Sodium 141 Potassium 3.2 L Chloride 104 Carbon Dioxide 24 L Anion Gap 12 BUN 38 H Creatinine 3.2 H Estimated GFR/1.73 m2 19 BUN/Creatinine Ratio 12 Glucose 229 H Calculated Osmolality 298 Calcium 8.1 L Total Bilirubin 0.50 AST 30 ALT 45 H Alkaline Phosphatase 83 Total Protein 6.3 Albumin 2.3 L Globulin 4.0 Albumin/Globulin Ratio 1.0 Urine Source Urine Color Urine Clarity Urine pH Ur Specific Bernice Urine Protein Urine Ketones Urine Blood Urine Nitrite Urine Bilirubin Urine Urobilinogen Urine Microscopic RBC Urine WBC Urine Microscopic WBC Ur Epithelial Cells Urine Bacteria Urine Yeast Urine Glucose 08/03/16 08/03/16 11:47 12:15 WBC RBC Hgb Hct MCV MCH MCHC RDW Std Deviation Plt Count MPV Immature Gran % (Auto) Neut % (Auto) Lymph % (Auto) [place] % (Auto) Eos % (Auto) Baso % (Auto) Immature Gran # (Auto) Neut # (Auto) Lymph # (Auto) [place] # (Auto) Eos # (Auto) Baso # (Auto) PT 16.3 H INR 1.28 H D-Dimer Sodium Potassium Chloride Carbon Dioxide Anion Gap BUN Creatinine Estimated GFR/1.73 m2 BUN/Creatinine Ratio Glucose Calculated Osmolality Calcium Total Bilirubin AST ALT Alkaline Phosphatase Total Protein Albumin Globulin Albumin/Globulin Ratio Urine Source CLEAN CATCH Urine Color YELLOW Urine Clarity VERY CLOUDY A Urine pH 5.0 Ur Specific Bernice 1.015 Urine Protein TRACE A Urine Ketones NEGATIVE Urine Blood TRACE Urine Nitrite NEGATIVE Urine Bilirubin NEGATIVE Urine Urobilinogen NORMAL Urine Microscopic RBC <10 Urine WBC 2+ A Urine Microscopic WBC 20-40 A Ur Epithelial Cells <10 Urine Bacteria NEGATIVE Urine Yeast PRESENT Urine Glucose NEGATIVE - XRAY 1 XRAY: Bilateral XRAY Study: Chest Impression: Normal XRAY Interpretation: stable chest - CONSULTS/PCP/HOSPITALIST Notification #1 *Consult/PCP/Hospitalist*: Dr. Philip Time Discussed: 13:53 (Dr. Philip accepted admit ) Reason/Comments: Dr. Crowell consulted with Dr. Philip about admit of Pt Consult Disposition: Admit <Heather Martino - Last Filed: 08/03/16 13:53> Departure <Heather Martino - Last Filed: 08/03/16 13:53> - Departure Time of Disposition Order: 14:05 Certified Medical Emergency: Emergent <René Crowell - Last Filed: 08/03/16 14:06> - Departure DIAGNOSIS: Thrombophilia, Status post total right knee replacement A-fib Qualifiers: Atrial fibrillation type: chronic Qualified Code(s): I48.2 - Chronic atrial fibrillation Disposition: ADMITTED INPATIENT 09 Condition: Stable Referrals: Fabio Hernández MD [Primary Care Provider] - Attestation - Scribe Verification/Attestation Scribe:: Heather Martino Acting as Scribe for:: René Crowell Scribe documention review:: This chart was documented by a scribe and accurately reflects the service the provider performed and the decisions made by the provider. <Heather Martino - Last Filed: 08/03/16 13:53> Physician Attestation
[2016-08-03 12:15] LABS: MANUAL DIFF NEEDED? NO
--- NOTE | 2016-08-03 12:49 | Diag Imaging Result Document ---
PROCEDURE NAME: CHEST-2 VIEWS - 08/03/2016 2 VIEWS OF THE CHEST: FINDINGS: There is a pacemaker over the right lower chest. There is dextrocardia. This has not changed since the previous study of 07/26/2016. There are pleural plaques present. Overall, there has been no significant change in the appearance of the chest. IMPRESSION: Stable chest.
[2016-08-03 12:50] LABS: INR 1.28 (0.86-1.15); PROTIME 16.3 Seconds (12.1-15.5)
[2016-08-03 13:10] LABS: BASO% 0.2 % (0.0-0.8); EOS# 0.16 X1000 (0.0-0.7); EOS% 1.3 % (0.0-10.0); HEMATOCRIT 32.3 % (42.0-52.0); IMM GRAN# 0.09 X1000 (0.0-0.04); IMM GRAN% 0.7 % (0.0-0.5); LYMPH# 2.61 X1000 (1.2-3.4); LYMPH% 21.7 % (20.5-51.1); MCH 27.1 PG (27-31); MCV 87.5 FL (81-99); MONO# 1.08 X1000 (0.11-0.59); NEUT% 67.1 % (42.2-75.2); PLT 253 X1000 (130-400); RBC 3.69 XMIL (4.7-6.1)
[2016-08-03 13:11] LABS: ALBUMIN 2.3 g/dL (3.5-5.0); CALCIUM 8.1 mg/dL (8.8-10.2); POTASSIUM 3.2 mmol/L (3.5-5.1); TOTAL BILIRUBIN 0.5 mg/dL (0.20-1.00); TOTAL PROTEIN 6.3 g/dL (6.3-8.3)
[2016-08-03 13:26] LABS: BILIRUBIN URINE NEGATIVE (NEGATIVE); CLARITY VERY CLOUDY (CLEAR); COLOR YELLOW; GLUCOSE URINE NEGATIVE (NEGATIVE); URINE EPITHELIAL CELLS <10 /HPF (<10); URINE RBC <10 /HPF (<10); URINE SOURCE CLEAN CATCH; URINE WBC 20-40 /HPF (<10)
[2016-08-03 13:27] LABS: URINE CULTURE PL NEEDED? YES
[2016-08-03 13:28] LABS: BE 5.3 mmoll (-3.0-3.0); BLOOD TYPE ARTERIAL; O2(CT) 16.7 mL/dL (15.0-23.0); PCO2(98.6) 46 mmHg (35-45); PO2(98.6) 61 mmHg (60-100); SAMPLE BLOOD; SAO2 92.2 % (95.0-100.0); THB 13.3 g/dL (11.5-17.4); pH(98.6) 7.43 (7.35-7.45)
[2016-08-03] MEDS ORDERED: LOVENOX SUBQ ONE (13:50)
[2016-08-03 14:06] LABS: MODALITY ROOM AIR
[2016-08-03 14:07] LABS: ALLEN TEST YES; DRAW SITE R RADIAL
[2016-08-03 15:20] LABS: BLOOD URINE TRACE (NEGATIVE); LEUKOCYTES URINE 2+ (NEGATIVE); NITRITE URINE NEGATIVE (NEGATIVE); PROTEIN URINE TRACE mg/dL (NEGATIVE); SP GRAVITY URINE 1.015; UROBILINOGEN URINE NORMAL
[2016-08-03] MEDS ORDERED: LOVENOX ONE (15:35)
--- NOTE | 2016-08-03 16:07 | Diag Imaging Result Document ---
PROCEDURE NAME: LUNG SCAN / VQ - 08/03/2016 VENTILATION-PERFUSION NUCLEAR MEDICINE EXAM: FINDINGS: 37.8 mCi of DTPA were taken for the ventilation images. 5.3 mCi of MAA were taken for the perfusion images. Comparison is made to a recent plain film taken earlier in the day. There are no wedge-shaped perfusion defects. No ventilation-perfusion mismatches. There is a pacemaker. IMPRESSION: Low probability for pulmonary embolus.
[2016-08-03] MEDS ORDERED: NS 1,000 ML IV SCH ×2 (17:00→17:15)
[2016-08-03] MEDS ORDERED: MORPHINE IV PRN (17:03)
[2016-08-03] MEDS ORDERED: TYLENOL PO PRN (17:03)
[2016-08-03] MEDS: COUMADIN PO SCH (20:53)
[2016-08-03] MEDS: CARDIZEM CD PO SCH (20:53)
[2016-08-03] MEDS: LIPITOR PO SCH (20:53)
[2016-08-03] MEDS: COLACE PO SCH (20:53)
[2016-08-03] MEDS ORDERED: GLUCOTROL XL PO SCH (21:00)
[2016-08-03] MEDS: HUMULIN R SUBQ SCH (21:06)
--- NOTE | 2016-08-03 21:16 | HISTORY AND PHYSICAL ---
CHIEF COMPLAINT: Cough and weakness for 3 days. HISTORY OF PRESENT ILLNESS: This is a 71-year-old male with a history of chronic atrial fibrillation, hypertension, obstructive sleep apnea, enlarged prostate, diabetes type 2 as well as dextrocardia. He presented to the emergency room complaining of 2-3 days of generalized weakness. He is status post right knee arthroplasty in May 2016. Patient states that he has been pretty much sedentary since then. He states he was in his normal state of health until 2 days ago he began to have generalized weakness. He did not really complain of any shortness of breath, chest pain, palpitations, syncope or dizziness. He was found to have a D-dimer of 6.3. Therefore a V/Q scan was ordered which revealed low probability for pulmonary embolus. Lower extremity Dopplers were then performed which revealed extensive bilateral DVTs. He is on warfarin due to his chronic atrial fibrillation. He does state that he is compliant with this although his INR was 1.28. He was given Lovenox 1 mg/kg subcu and he is being admitted for further evaluation and treatment. PAST MEDICAL HISTORY: Atrial fibrillation, hypertension, obstructive sleep apnea, enlarged prostate, diabetes mellitus type 2. PAST SURGICAL HISTORY: Right total knee arthroplasty, pacemaker placement, left carpal tunnel release, ORIF of the right thigh, right knee arthroplasty, facial reconstruction. SOCIAL HISTORY: He is . He does not use alcohol, tobacco or illicit drugs. HOME MEDICATIONS: A list will be obtained. ALLERGIES: Nitroglycerin which causes a headache and Singulair which makes his eyes water. REVIEW OF SYSTEMS: A 14 point review of systems is discussed with patient with pertinent positives stated in the HPI. All other systems are negative. PHYSICAL EXAMINATION: GENERAL: This is a 71-year-old male who is lying in the bed in no distress. VITAL SIGNS: Blood pressure is 135/67 with heart rate 77, respirations are 20, temperature is 97.4 degrees oral with oxygen saturations of 94-95% on 3 L nasal cannula. HEENT: Head is normocephalic, atraumatic. Pupils equal, round, react to light. EOMs are intact. Sclerae anicteric. Mucous membranes moist. NECK: Supple. Trachea midline. CARDIOVASCULAR: Regular rate and rhythm. S1 and S2 appreciated. No rubs, murmurs, or gallops. PULMONARY: Breath sounds are clear. No increased work of breathing noted. Chest does rise and fall symmetrically with respiration. GASTROINTESTINAL: Abdomen soft, nontender, nondistended with bowel sounds in all 4 quadrants. EXTREMITIES: No clubbing, cyanosis, or edema. He does have a healed incision to his right knee with pulses palpable x4. Calves are nontender. NEUROLOGIC: He is alert, orient x3. DIAGNOSTICS: WBC is 12.0 with a hemoglobin 10, hematocrit of 32.3 and platelets of 253,000. INR is 1.28 with a D-dimer of 6.37. Sodium is 141, potassium 3.2, BUN 38, creatinine 3.2 with a glucose of 229. Urinalysis is essentially negative. CTA is negative for PE. Chest x-ray reveals stable chest with pacemaker over the right lower chest with dextrocardia. ASSESSMENT: 1. Bilateral lower extremity deep venous thrombosis. 2. Generalized weakness. 3. Leukocytosis. 4. Hypokalemia. 5. Acute kidney injury in the setting of chronic kidney disease. 6. Diabetes mellitus type 2. 7. Atrial fibrillation status post pacemaker placement. 8. Hypertension. 9. Enlarged prostate. PLAN: The patient will be admitted to the hospital. He will be placed on telemetry. He was given Lovenox in emergency room. Will restart Coumadin at 5 mg a night checking daily INRs. Will continue Lovenox until he is therapeutic. Will give supplemental oxygen. Will identify and continue his home medications as appropriate holding any renal toxic medications. Be placed on pattern blood glucose with sliding scale insulin. Will give gentle hydration as the patient states he has not had much to eat or drink over the last 2-3 days. His creatinine is 3.2 today and looking back he has been in the 1.9-2.2 range over the last month or 2. We will trend labs daily, give gentle hydration, as stated before hold any renal toxic medications. Will check electrolytes, replete as appropriate. Patient does have obstructive sleep apnea , if he has used BiPAP will encourage him to bring this from home and of course will have supplemental oxygen. Further treatments pending hospital course. Dictated by YUVAL Gutierrez for Winston Philip MD pt examined, agree with above; likely hypoxia due to VTE, DVT APENOT MTDD
[2016-08-04] MEDS: HUMULIN R SUBQ SCH (06:45)
[2016-08-04 06:58] LABS: HEMATOCRIT 31.4 % (42.0-52.0); HEMOGLOBIN 9.5 g/dL (14.0-18.0); MCH 26.9 PG (27-31); MCHC 30.3 g/dL (33-37); RBC 3.53 XMIL (4.7-6.1)
[2016-08-04 07:14] LABS: CALCIUM 8.1 mg/dL (8.8-10.2); MAGNESIUM 1.7 mg/dL (1.5-2.7); POTASSIUM 3.1 mmol/L (3.5-5.1)
[2016-08-04 07:38] LABS: INR 1.31 (0.86-1.15); PROTIME 16.6 Seconds (12.1-15.5)
[2016-08-04] MEDS: HUMULIN 70/30 (PARKWAY) SUBQ SCH (08:21)
[2016-08-04] MEDS: COLACE PO SCH ×2 (08:22→20:24)
[2016-08-04] MEDS: GLUCOTROL XL PO SCH (08:22)
[2016-08-04] MEDS: CARDIZEM CD PO SCH ×2 (08:22→20:24)
[2016-08-04] MEDS: DUONEB (A & A) INH PRN ×3 (08:34→23:48)
[2016-08-04] MEDS: SYMBICORT 160/4.5 MICROGM INHALER INH SCH ×2 (08:34→19:30)
[2016-08-04] MEDS ORDERED: LASIX PO SCH (09:00)
[2016-08-04] MEDS ORDERED: LANOXIN PO SCH (09:00)
--- NOTE | 2016-08-04 09:11 | PROGRESS NOTE ---
DATE: 08/04/2016 SUBJECTIVE: The patient notes he is still coughing some but, overall, feels a little bit better. He denies any current fevers or chills. Denies chest pain, palpitations. OBJECTIVE: Vital signs reviewed. Temperature 99 degrees, pulse 75, respiratory 10, BP 149/65, saturation 99% on 3 L. General: The patient is well developed, well nourished. Currently in no real respiratory distress. He is awake, alert. Neck supple. CV: Regular rate. Chest: Relatively clear. Positive rhonchi. Abdomen soft. Extremities: Moves all extremities. Positive edema. ASSESSMENT: 1. Bilateral lower extremity deep venous thrombosis. 2. Generalized weakness. Continue physical therapy. 3. Leukocytosis, resolved. WBCs 10. 4. Hypokalemia, improving. Potassium is 3.1. Continue to replace. 5. Acute kidney injury. Creatinine continues to slowly improve. It was 3.2 on admission; currently down at 2.9; 1.5 to 1.9 appears to be his baseline. 6. Diabetes, type 2. 7. Atrial fibrillation. 8. Hypertension. PLAN: We will continue patient on Lovenox until his INR is greater than 2. We will continue to treat his blood sugar with Glucotrol and sliding scale insulin. Further orders as needed.
[2016-08-04] MEDS: HUMULIN R (PARKWAY) SUBQ SCH ×3 (11:48→21:14)
[2016-08-04] MEDS: CALMOSEPTINE OINTMENT TOP PRN (12:26)
[2016-08-04] MEDS: LOVENOX SUBQ SCH (17:31)
[2016-08-04] MEDS: COUMADIN PO SCH (20:24)
[2016-08-04] MEDS: LIPITOR PO SCH (20:24)
[2016-08-05 05:38] LABS: HEMATOCRIT 29.9 % (42.0-52.0); MCH 26.9 PG (27-31); MCHC 30.1 g/dL (33-37); MCV 89.3 FL (81-99); MPV 12.4 FL (7.4-10.4); RBC 3.35 XMIL (4.7-6.1)
[2016-08-05 05:43] LABS: INR 1.78 (0.86-1.15); PROTIME 20.9 Seconds (12.1-15.5)
[2016-08-05 06:09] LABS: ALBUMIN 2.2 g/dL (3.5-5.0); CALCIUM 8.4 mg/dL (8.8-10.2); MAGNESIUM 1.8 mg/dL (1.5-2.7); TOTAL BILIRUBIN 0.4 mg/dL (0.20-1.00)
[2016-08-05] MEDS: HUMULIN R (PARKWAY) SUBQ SCH ×4 (06:13→23:43)
[2016-08-05] MEDS ORDERED: MYLICON PO PRN (07:29)
[2016-08-05] MEDS ORDERED: MILK OF MAGNESIA PO PRN (07:29)
[2016-08-05] MEDS: DUONEB (A & A) INH PRN ×4 (07:52→23:33)
--- NOTE | 2016-08-05 07:53 | PROGRESS NOTE ---
DATE: 08/05/2016 SUBJECTIVE: The patient is without complaints today. States he is feeling fine. Denies any chest pain or palpitations. Denies any fevers or chills. PHYSICAL EXAMINATION: Vital Signs: Temperature 98, pulse 60, respiratory rate 21, BP 157/53. General: Patient is a well developed, elderly male who is currently in no respiratory distress. He is awake, alert. Neck: Supple. CV: Regular rate. Chest: Relatively clear. Extremities: Moves all extremities. Neurologic: No changes. LABS: Reviewed. ASSESSMENT: 1. Bilateral lower extremity deep venous thrombosis. INR currently pending. Continue Coumadin. We will adjust as needed. 2. Generalized weakness. 3. Leukocytosis, resolved. 4. Mild chronic anemia. 5. Mild hypokalemia. We will replace by mouth. 6. Hepatitis. His AST and ALT both have elevated, uncertain etiology. 7. Atrial fibrillation. 8. Diabetes type 2. 9. Hypertension. PLAN: We will continue to await INR greater than 2. His acute renal failure on chronic continues to improve. Serum creatinine was 3.2 on admission and has continued to drift down, currently at 2.4. Baseline appears to be between 1.4 and 1.9. His GFR is still diminished around 27.
[2016-08-05] MEDS: SYMBICORT 160/4.5 MICROGM INHALER INH SCH ×2 (07:57→20:15)
[2016-08-05] MEDS: TYLENOL PO SCH ×3 (09:24→19:29)
[2016-08-05] MEDS: COLACE PO SCH ×2 (09:24→23:17)
[2016-08-05] MEDS: CARDIZEM CD PO SCH ×2 (09:24→23:17)
[2016-08-05] MEDS: COZAAR PO SCH (09:24)
[2016-08-05] MEDS: MIRALAX PO SCH (09:24)
[2016-08-05] MEDS: PRILOSEC PO SCH (09:24)
[2016-08-05] MEDS: KLOR-CON PO SCH (09:24)
[2016-08-05] MEDS: GLUCOTROL XL PO SCH (09:25)
[2016-08-05] MEDS: LYRICA PO SCH ×2 (09:25→23:18)
[2016-08-05] MEDS: HUMULIN 70/30 (PARKWAY) SUBQ SCH (09:25)
[2016-08-05] MEDS: TOPROL XL PO SCH ×2 (09:26→23:18)
[2016-08-05] MEDS: LOVENOX SUBQ SCH (16:10)
[2016-08-05] MEDS: ZOFRAN IV PRN (21:29)
[2016-08-05] MEDS: LIPITOR PO SCH (23:17)
[2016-08-05] MEDS: COUMADIN PO SCH (23:17)
[2016-08-05] MEDS: FLOMAX PO SCH (23:42)
[2016-08-06] MEDS: ZOFRAN IV PRN ×2 (01:34→06:38)
[2016-08-06] MEDS: TYLENOL PO SCH ×4 (01:39→20:13)
[2016-08-06] MEDS: DUONEB (A & A) INH PRN ×6 (04:36→23:18)
[2016-08-06 06:15] LABS: HEMATOCRIT 32.4 % (42.0-52.0); HEMOGLOBIN 9.6 g/dL (14.0-18.0); MCH 26.5 PG (27-31); MCHC 29.6 g/dL (33-37); MCV 89.5 FL (81-99); MPV 12.3 FL (7.4-10.4); RBC 3.62 XMIL (4.7-6.1)
[2016-08-06] MEDS: PRILOSEC PO SCH (06:38)
[2016-08-06 06:41] LABS: ALBUMIN 2.6 g/dL (3.5-5.0); CALCIUM 8.6 mg/dL (8.8-10.2); MAGNESIUM 1.7 mg/dL (1.5-2.7); POTASSIUM 3.3 mmol/L (3.5-5.1); TOTAL BILIRUBIN 0.4 mg/dL (0.20-1.00); TOTAL PROTEIN 6.3 g/dL (6.3-8.3)
[2016-08-06] MEDS: HUMULIN R (PARKWAY) SUBQ SCH ×4 (07:01→22:14)
--- NOTE | 2016-08-06 07:11 | Extremity Venous Study ---
PROCEDURE NAME: Venous U/S Bilateral Legs - 08/03/2016 BILATERAL LOWER EXTREMITY VENOUS DOPPLER ULTRASOUND: COMPARISON: None. FINDINGS: There is relatively extensive, nonocclusive deep venous thrombosis of the right common femoral vein, deep femoral vein and popliteal vein. There is some flow present around the thrombus. There is also acute appearing, nonocclusive deep venous thrombosis of the left distal common femoral vein and deep femoral vein. There is some flow present here. At the left common femoral vein, the deep venous thrombosis appears mobile and may be unstable. IMPRESSION: Extensive bilateral lower extremity deep venous thrombosis. Portions in the left common femoral vein appear unstable and may be prone to quickly embolize.
[2016-08-06 07:16] LABS: INR 2.4 (0.86-1.15); PROTIME 26.2 Seconds (12.1-15.5)
[2016-08-06] MEDS: SYMBICORT 160/4.5 MICROGM INHALER INH SCH ×2 (07:37→19:36)
--- NOTE | 2016-08-06 07:49 | PROGRESS NOTE ---
DATE: 08/06/2016 SUBJECTIVE: The patient is a little bit better. He is somewhat confused this morning, but he is somewhat confused each morning upon awakening. He does seem to reorient during the day. OBJECTIVE: Vital Signs: Reviewed. Temperature 98 degrees, pulse 101, respiratory 20, BP 137/67, sat 94% on room air. General: Patient is a well-developed male who currently is in no respiratory distress. He is awake, alert. HEENT: Normocephalic. Neck: Supple. CV: Regular rate. Chest: Relatively clear. Abdomen: Soft. Extremities: Moves all extremities. Neurologic: No changes. Skin: Warm and dry. No rashes. Urine culture is still pending. ASSESSMENT: 1. Urinary tract infection with metabolic encephalopathy. 2. Hypercoagulable secondary to Coumadin. 3. Bilateral deep vein thromboses, currently on Coumadin with an INR greater than 2.5. Therefore, we will stop Lovenox. We will also decrease his Coumadin, as he has had a rapid increase in his INR. We will decrease down to 3 mg. 4. Generalized weakness. Continue physical therapy. 5. Leukocytosis, likely secondary to urinary tract infection. 6. Hypokalemia, improving. 7. Chronic renal failure. Serum creatinine remains stable. 8. Atrial fibrillation with pacemaker for which he is on Coumadin. 9. Hypertension, stable. 10. Diabetes type 2. Blood sugar is mildly elevated this morning. We will increase his 70/30 to 18 units in the a.m. PLAN: We will continue patient on his current medications. Continue to follow his potassium. We will await culture and sensitivity. Decrease his Coumadin. Begin looking for discharge planning.
[2016-08-06] MEDS: GLUCOTROL XL PO SCH (08:59)
[2016-08-06] MEDS: MIRALAX PO SCH (08:59)
[2016-08-06] MEDS: KLOR-CON PO SCH (08:59)
[2016-08-06] MEDS: CARDIZEM CD PO SCH ×2 (08:59→22:56)
[2016-08-06] MEDS: TOPROL XL PO SCH ×2 (08:59→22:58)
[2016-08-06] MEDS: COZAAR PO SCH (09:00)
[2016-08-06] MEDS: COLACE PO SCH ×2 (09:00→22:56)
[2016-08-06] MEDS: HUMULIN 70/30 (PARKWAY) SUBQ SCH (09:00)
[2016-08-06] MEDS: LYRICA PO SCH ×2 (09:00→22:57)
[2016-08-06 16:21] LABS: BLOOD TYPE ARTERIAL; SAMPLE BLOOD
[2016-08-06 16:22] LABS: BE 12.1 mmoll (-3.0-3.0); DRAW SITE R RADIAL; METHB 1.5 % (0.0-1.5); O2(CT) 13.5 mL/dL (15.0-23.0); PCO2(98.6) 50 mmHg (35-45); PO2(98.6) 65 mmHg (60-100); SAO2 95.6 % (95.0-100.0); THB 10.4 g/dL (11.5-17.4); pH(98.6) 7.48 (7.35-7.45)
[2016-08-06 16:29] LABS: ALLEN TEST YES; MODALITY CANNULA
--- NOTE | 2016-08-06 17:22 | Diag Imaging Result Document ---
PROCEDURE NAME: CHEST-PORTABLE - 08/06/2016 PORTABLE CHEST ERECT: TIME: 16:31 hours. FINDINGS: Compared to the previous study of 08/03/2016, there is opacification in the right lower lobe silhouetting the heart border and hemidiaphragm. There is dextrocardia. There is calcification in the pleural space, particularly on the left. IMPRESSION: Left lower lobe atelectasis and/or pneumonia.
[2016-08-06] MEDS ORDERED: DIFLUCAN 100 MG/NS 50 ML IV ONE (18:17)
[2016-08-06] MEDS ORDERED: NS 500 ML ONE (19:52)
[2016-08-06] MEDS: ZOSYN 3.375 GM/NS 50 ML IV SCH (20:44)
[2016-08-06] MEDS: LEVAQUIN 250 MG/D5W 50 ML IV SCH (21:19)
[2016-08-06] MEDS: COUMADIN PO SCH (22:56)
[2016-08-06] MEDS: LIPITOR PO SCH (22:57)
[2016-08-06] MEDS: FLOMAX PO SCH (22:57)
[2016-08-07] MEDS: ZOSYN 3.375 GM/NS 50 ML IV SCH ×4 (02:21→20:11)
[2016-08-07] MEDS: TYLENOL PO SCH (02:27)
[2016-08-07] MEDS: DUONEB (A & A) INH PRN ×3 (03:19→19:35)
[2016-08-07] MEDS: HUMULIN R (PARKWAY) SUBQ SCH ×4 (06:08→20:52)
[2016-08-07] MEDS: PRILOSEC PO SCH (06:09)
[2016-08-07 06:26] LABS: HEMATOCRIT 30.2 % (42.0-52.0); HEMOGLOBIN 9.1 g/dL (14.0-18.0); MCH 27.2 PG (27-31); MCHC 30.1 g/dL (33-37); MCV 90.1 FL (81-99); MPV 12.2 FL (7.4-10.4); RBC 3.35 XMIL (4.7-6.1)
[2016-08-07 06:43] LABS: ALBUMIN 2.4 g/dL (3.5-5.0); CALCIUM 8.4 mg/dL (8.8-10.2); POTASSIUM 3.5 mmol/L (3.5-5.1); TOTAL BILIRUBIN 0.3 mg/dL (0.20-1.00); TOTAL PROTEIN 6.2 g/dL (6.3-8.3)
[2016-08-07] MEDS ORDERED: MORPHINE IV PRN (07:14)
[2016-08-07] MEDS: SYMBICORT 160/4.5 MICROGM INHALER INH SCH ×2 (07:59→19:35)
--- NOTE | 2016-08-07 08:49 | PROGRESS NOTE ---
DATE: 08/07/2016 SUBJECTIVE: The patient states he is feeling better this morning. He is much more awake and alert. He is much less confused this morning. OBJECTIVE: Temperature 98 degrees, pulse 88, respiratory 18, BP 126/70, sat 98% on 3 L. General: Patient is a well-developed male who is currently in no respiratory distress. He is much more awake and alert this morning than he was yesterday morning. HEENT: Normocephalic, atraumatic, PRIYANKA. Neck: Supple. CV: Regular rate. Chest: Relatively clear. Better air movement this morning. Abdomen: Soft. DIAGNOSTIC DATA: WBCs 13. INR is 2.4. Sodium 148, creatinine 2.2, glucose 152, albumin 2.4. ASSESSMENT: 1. Moderate protein calorie malnutrition. 2. Leukocytosis, improving. WBC count is slowly resolving. 3. Left lower lobe pneumonia. This is improving. His oxygenation also is improving. 4. Hypoxic respiratory failure. 5. Acute renal failure. Continues to slowly improve. Creatinine is currently down to 2.2 with his baseline being 1.5-1.9. 6. Hypernatremia, stable. 7. Diabetes with hyperglycemia, stable. 8. Generalized weakness. We will continue physical therapy. 9. Atrial fibrillation, stable. PLAN: We will continue patient on Levaquin and Zosyn through the weekend. Hopefully, he will be able to go to rehab on Wednesday.
[2016-08-07] MEDS: LYRICA PO SCH ×2 (09:35→20:12)
[2016-08-07] MEDS: KLOR-CON PO SCH (09:35)
[2016-08-07] MEDS: CARDIZEM CD PO SCH ×2 (09:35→20:12)
[2016-08-07] MEDS: COLACE PO SCH ×2 (09:35→20:12)
[2016-08-07] MEDS: GLUCOTROL XL PO SCH (09:36)
[2016-08-07] MEDS: COZAAR PO SCH (09:36)
[2016-08-07] MEDS: TOPROL XL PO SCH ×2 (09:36→20:12)
[2016-08-07] MEDS: HUMULIN 70/30 (PARKWAY) SUBQ SCH (09:36)
[2016-08-07] MEDS: MIRALAX PO SCH (09:37)
[2016-08-07] MEDS: CALMOSEPTINE OINTMENT TOP PRN (09:48)
[2016-08-07] MEDS: OXY IR PO PRN (18:03)
[2016-08-07] MEDS: LEVAQUIN 250 MG/D5W 50 ML IV SCH (20:11)
[2016-08-07] MEDS: COUMADIN PO SCH (20:12)
[2016-08-07] MEDS: LIPITOR PO SCH (20:12)
[2016-08-07] MEDS: FLOMAX PO SCH (20:12)
[2016-08-08] MEDS: ZOSYN 3.375 GM/NS 50 ML IV SCH ×4 (02:04→20:17)
[2016-08-08] MEDS: PRILOSEC PO SCH (06:17)
[2016-08-08] MEDS: HUMULIN R (PARKWAY) SUBQ SCH ×4 (06:53→20:23)
[2016-08-08] MEDS: SYMBICORT 160/4.5 MICROGM INHALER INH SCH ×2 (07:09→20:01)
[2016-08-08] MEDS: DUONEB (A & A) INH PRN (07:09)
[2016-08-08] MEDS: MIRALAX PO SCH (08:36)
[2016-08-08] MEDS: COZAAR PO SCH (08:36)
[2016-08-08] MEDS: LYRICA PO SCH ×2 (08:36→20:17)
[2016-08-08] MEDS: GLUCOTROL XL PO SCH (08:36)
[2016-08-08] MEDS: COLACE PO SCH ×2 (08:36→20:17)
[2016-08-08] MEDS: KLOR-CON PO SCH (08:37)
[2016-08-08] MEDS: HUMULIN 70/30 (PARKWAY) SUBQ SCH (08:37)
[2016-08-08] MEDS: TOPROL XL PO SCH ×2 (08:37→20:17)
[2016-08-08] MEDS: CARDIZEM CD PO SCH ×2 (08:37→20:17)
[2016-08-08] MEDS: CALMOSEPTINE OINTMENT TOP PRN (08:41)
--- NOTE | 2016-08-08 11:09 | PROGRESS NOTE ---
DATE: 08/08/2016 SUBJECTIVE: The patient notes he is feeling better. He is having less cough and congestion. He did not get out of bed yesterday. PHYSICAL EXAMINATION: Vital Signs: Temperature 98 degrees, pulse 87, respiratory rate 20, blood pressure 107/58. General: Patient is a well-developed, elderly male who is currently in no respiratory distress. He is awake, alert. Neck: Supple. Cardiovascular: Regular rate. Chest: Better air movement. Positive rhonchi. No apparent wheezing this morning. Abdomen: Soft. Extremities: The patient moves extremities, although he is extremely weak. LABORATORIES: No current laboratories this morning. We will recheck in the a.m. ASSESSMENT: 1. Moderate protein calorie malnutrition. 2. Leukocytosis, slowly improving. 3. Left lower lobe pneumonia. Patient did not require BiPAP last night. He has continued to improve from his hypoxic respiratory failure. 4. Adult failure to thrive. Patient likely will need rehabilitation. Hopefully, this can be set up on Wednesday. 5. Hyponatremia continues to improve. At this point, will saline lock and see how his laboratories are in the a.m. 6. Diabetes, stable. 7. Atrial fibrillation, stable.
[2016-08-08] MEDS: OXY IR PO PRN (12:27)
[2016-08-08] MEDS: LIPITOR PO SCH (20:17)
[2016-08-08] MEDS: COUMADIN PO SCH (20:17)
[2016-08-08] MEDS: FLOMAX PO SCH (20:17)
[2016-08-08] MEDS: LEVAQUIN 250 MG/D5W 50 ML IV SCH (20:17)
[2016-08-09] MEDS: ZOSYN 3.375 GM/NS 50 ML IV SCH ×2 (03:14→03:59)
[2016-08-09] MEDS: PRILOSEC PO SCH (06:05)
[2016-08-09] MEDS: HUMULIN R (PARKWAY) SUBQ SCH ×4 (06:26→21:54)
[2016-08-09 06:48] LABS: HEMOGLOBIN 7.9 g/dL (14.0-18.0); MCH 26.5 PG (27-31); MCHC 29.3 g/dL (33-37); MCV 90.6 FL (81-99); MPV 12.3 FL (7.4-10.4); RBC 2.98 XMIL (4.7-6.1)
[2016-08-09 07:14] LABS: ALBUMIN 2.4 g/dL (3.5-5.0); MAGNESIUM 1.8 mg/dL (1.5-2.7); TOTAL BILIRUBIN 0.2 mg/dL (0.20-1.00); TOTAL PROTEIN 5.7 g/dL (6.3-8.3)
[2016-08-09] MEDS: DUONEB (A & A) INH PRN ×2 (08:00→15:08)
[2016-08-09] MEDS: SYMBICORT 160/4.5 MICROGM INHALER INH SCH ×3 (08:24→19:28)
[2016-08-09] MEDS ORDERED: LEVAQUIN 250 MG/D5W 50 ML IV SCH (09:51)
[2016-08-09] MEDS: KLOR-CON PO SCH (09:54)
[2016-08-09] MEDS: MIRALAX PO SCH (09:54)
[2016-08-09] MEDS: CARDIZEM CD PO SCH ×2 (09:55→21:53)
[2016-08-09] MEDS: GLUCOTROL XL PO SCH (09:55)
[2016-08-09] MEDS: COLACE PO SCH ×2 (09:55→21:53)
[2016-08-09] MEDS: TOPROL XL PO SCH ×2 (09:55→21:53)
[2016-08-09] MEDS: COZAAR PO SCH (09:55)
[2016-08-09] MEDS: LYRICA PO SCH ×2 (09:55→21:53)
--- NOTE | 2016-08-09 12:29 | PROGRESS NOTE ---
DATE: 08/09/2016 SUBJECTIVE: The patient states that he is feeling better today. His cough is better. He had just finished working with PT for my exam. He feels like he has more strength. OBJECTIVE: Vital signs: Blood pressure is 115/61, heart rate 68, respirations 18, temperature 98.6 orally with oxygen saturations of 97% to 100% on 3 L nasal cannula. Cardiovascular: Regular rate and rhythm. S1 and S2 appreciated. Pulmonary: He does have some rhonchi. They do clear somewhat to cough. He is wheezing throughout today. No increased work of breathing noted. Gastrointestinal: Abdomen is soft, nontender and nondistended with bowel sounds in all 4 quadrants. Extremities: No clubbing or cyanosis. No edema. Calves are nontender. Pulses are palpable x4. DIAGNOSTIC DATA: INR is pending. ASSESSMENT: 1. Moderate protein calorie malnutrition. The patient states that his appetite is improving somewhat. We will encourage him to supplement with Glucerna. 2. Leukocytosis. This is slowly improving. 3. Left lower lobe pneumonia. The patient has not required BiPAP in about 48 hours now. He is maintaining saturations of 97% to 100% on 3 L nasal cannula. 4. Adult failure to thrive. He will need rehab. The patient does agree to go. 5. Hyponatremia. This does continue to improve. 6. Diabetes mellitus. This is stable. We will continue his regimen. 7. Atrial fibrillation. We will continue his regimen. 8. Continue Warfarin to keep INR between 2 and 3. 9. For DVT prophylaxis, of course he is on Warfarin. 10.For GI prophylaxis, Prilosec. Dictated by YUVAL Gutierrez for Howard Shirley MD
[2016-08-09 16:42] LABS: HEMATOCRIT 27.6 % (42.0-52.0); HEMOGLOBIN 8.2 g/dL (14.0-18.0); MCH 26.8 PG (27-31); MCHC 29.7 g/dL (33-37); MCV 90.2 FL (81-99); RBC 3.06 XMIL (4.7-6.1)
[2016-08-09 18:04] LABS: INR 6.88 (0.86-1.15); PROTIME 58.2 Seconds (12.1-15.5)
[2016-08-09] MEDS ORDERED: VITAMIN K PO ONE (20:29)
[2016-08-09] MEDS: LEVAQUIN PO SCH (21:53)
[2016-08-09] MEDS: FLOMAX PO SCH (21:53)
[2016-08-09] MEDS: LIPITOR PO SCH (21:53)
[2016-08-10 06:23] LABS: HEMOGLOBIN 8.1 g/dL (14.0-18.0); MCH 26.7 PG (27-31); MCV 89.1 FL (81-99); MPV 12.1 FL (7.4-10.4); RBC 3.03 XMIL (4.7-6.1)
[2016-08-10] MEDS: PRILOSEC PO SCH (06:23)
[2016-08-10] MEDS: HUMULIN R (PARKWAY) SUBQ SCH ×4 (06:23→22:26)
[2016-08-10 06:38] LABS: ALBUMIN 2.4 g/dL (3.5-5.0); CALCIUM 8.2 mg/dL (8.8-10.2); MAGNESIUM 1.8 mg/dL (1.5-2.7); POTASSIUM 4.2 mmol/L (3.5-5.1); TOTAL BILIRUBIN 0.3 mg/dL (0.20-1.00); TOTAL PROTEIN 5.7 g/dL (6.3-8.3)
[2016-08-10 06:54] LABS: INR 5.81 (0.86-1.15); PROTIME 51.2 Seconds (12.1-15.5)
[2016-08-10] MEDS ORDERED: VITAMIN K PO ONE (07:34)
[2016-08-10] MEDS: DUONEB (A & A) INH PRN ×2 (07:43→19:29)
[2016-08-10] MEDS: SYMBICORT 160/4.5 MICROGM INHALER INH SCH ×2 (07:43→19:27)
--- NOTE | 2016-08-10 07:52 | PROGRESS NOTE ---
DATE: 08/10/2016 SUBJECTIVE: The patient is without complaints. He notes that he is starting to feel a little bit better. OBJECTIVE: Vital Signs: Reviewed. Temperature 98 degrees, pulse 55, respiratory rate 18, blood pressure 113/55, saturating 96% on room air. General: The patient is well developed and well nourished. Currently in no real respiratory distress. He is awake, alert. Neck: Supple. Cardiovascular: Regular rate and rhythm. Chest: Relatively clear. Abdomen: Soft, nondistended. Neurologic: No focal changes. Skin: Warm and dry. No rashes. ASSESSMENT: 1. Anemia is stable at 8 and 27. 2. Chronic renal failure is stable at 2.5. 3. Left lower lobe pneumonia. We will repeat chest x-ray. 4. Diabetes with hyperglycemia. 5. Generalized weakness. 6. Atrial fibrillation. PLAN: We will continue to follow the patient. Hopefully, he can be transferred to rehab soon. His INR is mildly elevated at 5. We will continue to hold his Coumadin, and we will give him vitamin K p.o.
[2016-08-10] MEDS: COLACE PO SCH ×2 (08:33→22:24)
[2016-08-10] MEDS: MIRALAX PO SCH (08:33)
[2016-08-10] MEDS: KLOR-CON PO SCH (08:33)
[2016-08-10] MEDS: GLUCOTROL XL PO SCH (08:33)
[2016-08-10] MEDS: LYRICA PO SCH ×2 (08:34→22:25)
[2016-08-10] MEDS: COZAAR PO SCH (08:34)
[2016-08-10] MEDS: CARDIZEM CD PO SCH ×2 (08:34→22:25)
[2016-08-10] MEDS: TOPROL XL PO SCH ×2 (08:34→22:24)
[2016-08-10] MEDS: OXY IR PO PRN ×2 (18:02→22:24)
[2016-08-10 18:24] LABS: OCCULT BLOOD 1 POSITIVE (NEGATIVE)
[2016-08-10] MEDS: LEVAQUIN PO SCH (22:25)
[2016-08-10] MEDS: LIPITOR PO SCH (22:25)
[2016-08-10] MEDS: FLOMAX PO SCH (22:25)
[2016-08-11 06:07] LABS: HEMATOCRIT 27.9 % (42.0-52.0); HEMOGLOBIN 8.3 g/dL (14.0-18.0); MCH 26.6 PG (27-31); MCHC 29.7 g/dL (33-37); MCV 89.4 FL (81-99); MPV 12.4 FL (7.4-10.4); RBC 3.12 XMIL (4.7-6.1)
[2016-08-11] MEDS: HUMULIN R (PARKWAY) SUBQ SCH ×4 (06:15→22:00)
[2016-08-11] MEDS: PRILOSEC PO SCH (06:15)
[2016-08-11 06:23] LABS: ALBUMIN 2.3 g/dL (3.5-5.0); CALCIUM 8.3 mg/dL (8.8-10.2); MAGNESIUM 1.7 mg/dL (1.5-2.7); POTASSIUM 4.6 mmol/L (3.5-5.1); TOTAL BILIRUBIN 0.3 mg/dL (0.20-1.00); TOTAL PROTEIN 5.8 g/dL (6.3-8.3)
[2016-08-11 06:55] LABS: INR 1.4 (0.86-1.15); PROTIME 17.4 Seconds (12.1-15.5)
--- NOTE | 2016-08-11 07:38 | Diag Imaging Result Document ---
PROCEDURE NAME: CHEST-PORTABLE - 08/11/2016 PORTABLE CHEST: COMPARISON: Compared to 08/06/2016. FINDINGS: The heart remains enlarged. The film is either mislabeled or there is dextrocardia. There are infiltrates in the right lung and left base and there are calcified pleural plaques on the left I believe there are also small effusions. The vessels are not distended. The overall appearance of the chest is quite similar to that of the prior exam. IMPRESSION: Stable chest. [facility]
[2016-08-11] MEDS: SYMBICORT 160/4.5 MICROGM INHALER INH SCH ×2 (07:46→19:24)
[2016-08-11] MEDS: DUONEB (A & A) INH PRN ×4 (07:46→19:24)
--- NOTE | 2016-08-11 08:26 | PROGRESS NOTE ---
DATE: 08/11/2016 SUBJECTIVE: Patient without any new complaints this morning. States he is feeling a little bit better. Staff notes that he had heme-positive stool yesterday. PHYSICAL EXAMINATION: Vital Signs: Temperature 98 degrees, pulse 85, respiratory rate 18, blood pressure 131/62. General: Patient is well developed and well nourished, currently in no real respiratory distress. He is awake, alert. Neck: Supple. Cardiovascular: Regular rate. Chest: Relatively clear. Abdomen: Soft, nondistended. Extremities: Moves all extremities. Neurologic: No changes. LABORATORIES: Reviewed. Hemoglobin and hematocrit stable at 8 and 27, has not changed for 3 days. BMP without any change. Creatinine is 2.5, which appears to be his new baseline. 1. Moderate protein calorie malnutrition. 2. Left lower lobe pneumonia. Patient currently is on p.o. antibiotics. 3. Hypercoagulopathy secondary to Coumadin. INR is actually back down to 1.4 today. He has been given vitamin K twice because his INR was elevated at 6 and then down to 5. He did have heme- positive stool yesterday, which is likely secondary to his elevated INR. We will be re- Hemoccult his stool today. If it is clear, then he certainly can go to rehabilitation with outpatient endoscopy. 4. Atrial fibrillation. We will restart Coumadin.
[2016-08-11] MEDS: COLACE PO SCH ×2 (09:05→21:26)
[2016-08-11] MEDS: KLOR-CON PO SCH (09:05)
[2016-08-11] MEDS: MIRALAX PO SCH (09:05)
[2016-08-11] MEDS: GLUCOTROL XL PO SCH (09:06)
[2016-08-11] MEDS: LYRICA PO SCH ×2 (09:06→21:26)
[2016-08-11] MEDS: TOPROL XL PO SCH ×2 (09:15→21:26)
[2016-08-11] MEDS: CARDIZEM CD PO SCH ×2 (09:16→21:26)
[2016-08-11] MEDS: COZAAR PO SCH (09:16)
[2016-08-11 10:44] LABS: OCCULT BLOOD 1 POSITIVE (NEGATIVE)
[2016-08-11] MEDS ORDERED: GOLYTELY PO ONE (14:00)
[2016-08-11] MEDS ORDERED: COUMADIN PO SCH (21:00)
[2016-08-11] MEDS: LEVAQUIN PO SCH (21:26)
[2016-08-11] MEDS: LIPITOR PO SCH (21:26)
[2016-08-11] MEDS: FLOMAX PO SCH (21:26)
[2016-08-11] MEDS: ZOFRAN IV PRN (23:29)
[2016-08-12] MEDS: SYMBICORT 160/4.5 MICROGM INHALER INH SCH ×2 (07:20→19:44)
[2016-08-12] MEDS: DUONEB (A & A) INH PRN ×2 (07:20→19:44)
--- NOTE | 2016-08-12 07:56 | PROGRESS NOTE ---
DATE: 08/12/2016 SUBJECTIVE: The patient without any complaints. He denies any chest pain or palpitations currently. OBJECTIVE: Vital signs reviewed. He is a well-developed male who is currently in no respiratory distress. He is awake. Neck supple. CV: Regular rate. Chest: Relatively clear. ASSESSMENT: 1. Heme-positive stool. The patient will have a colonoscopy. This is likely secondary to his markedly elevated INR level a few days ago. 2. Anemia of chronic disease, stable. 3. Tryxi-at-updlisn renal failure. The patient is currently at his baseline. 4. Left lower lobe pneumonia continues to improve. 5. Leukocytosis. 6. Diabetes. PLAN: The patient will have endoscopy today and, hopefully, to rehab in the next day or 2 should his endoscopy to be normal. If his endoscopy is normal, he will need to restart his Coumadin.
[2016-08-12 09:28] LABS: INR 1.21 (0.86-1.15); PROTIME 15.6 Seconds (12.1-15.5)
[2016-08-12] MEDS ORDERED: MYLICON DROPS (DOSE) MISC ONE (14:47)
[2016-08-12] MEDS ORDERED: DIPRIVAN 1% ONE (15:34)
[2016-08-12] MEDS ORDERED: NEO-SYNEPHRINE ONE (15:55)
[2016-08-12] MEDS ORDERED: EPHEDRINE ONE (15:55)
[2016-08-12] MEDS ORDERED: ANESTHESIA PB SET 88 IN 5742 ONE (15:55)
[2016-08-12] MEDS ORDERED: EXTENSION SET 32 IN 4522 ONE (15:55)
--- NOTE | 2016-08-12 15:55 | OPERATIVE NOTE ---
PROCEDURE DATE: 08/12/2016 DATE OF SURGERY: 08/12/2016. REQUESTING PHYSICIAN: Dr. Shirley. PROCEDURE: 1. Esophagogastroscopy. 2. Colonoscopy. History of positive Hemoccult. 3. Anemia. 4. History of diabetes. 5. Immobility. 6. Abdominal discomfort. 7. Obesity. 8. Coagulopathy secondary to Coumadin use for atrial fibrillation which has been held, and the coagulopathy was corrected. His admission INR was more than 6 and is now currently 1.2. POSTOPERATIVE DIAGNOSES: 1. Normal esophagus. 2. Z-line was at 40 cm. 3. Abdomen soft. Retained food contents in the stomach suggesting gastroparesis. Retroflexion revealed normal fundus, cardia, incisura. Some part of the stomach body could not be completely seen because of retained food contents. Normal duodenal bulb and second portion. 4. Stool throughout the colon. Some lesions less than 5 mm could have been missed. 5. Internal hemorrhoids. Retroflexion reveals diverticulosis in the left colon. 6. No evidence of active bleeding fresh or old blood noted in entire esophagogastroduodenoscopy and colonoscopy. ESTIMATED BLOOD LOSS: None. COMPLICATIONS: None. ANESTHESIA: Monitored anesthesia. SPECIMEN: None. DESCRIPTION OF PROCEDURE IN DETAIL: After informed consent given to the patient and explaining the risks, benefits, indications, and alternatives, the patient was prepared for EGD and colonoscopy. The patient was brought to the OR. He was turned in the left lateral position. A bite block was placed. After adequate monitored anesthesia care, the scope was then used to go all the way to the second portion of the esophagus, normal in entire length. The Z-line was at 40 cm. The scope was then advanced and showed evidence of moderate amount of retained solid food contents in the stomach suggesting gastroparesis. I tried to suck it out, suction it out as much as I can, but there was still some remaining food contents in the stomach body. Retroflexion in the stomach revealed normal fundus, cardia, incisura. Some part of the stomach body could not be cleared because of retained food contents. The pylorus appeared normal. Antrum showed evidence of mild erythema suggesting mild gastritis. The scope was advanced to the duodenum which was normal in the duodenal bulb and second portion. The scope was withdrawn into the stomach. The air was aspirated as the scope was withdrawn. The patient had rectal exam performed, which revealed stool on the finger and no masses are felt. The colonoscope was then used to visualize all to the cecum. The cecum and duodenum was well evaluated. The bowel prep was fair to poor. There was abundant piles of segments of stool throughout the colon. They were not completely suctioned out. There was evidence of diverticulosis starting in the descending colon at 50 cm and extended up to descending and sigmoid colon. There was evidence of internal hemorrhoids. The air was withdrawn from the scope. The patient tolerated the procedure well and went to recovery room in stable condition. I did not find any evidence of fresh or old blood, any evidence of any AVM's or colitis or any fresh or old blood in the entire EGD or colonoscopy. I called and discussed the findings with the patient's by phone. RECOMMENDATIONS: 1. We transferred back to [place] under the care of Dr. Shriley. 2. The patient will be on GI soft diet diabetic diet. The patient will avoid corn, nuts, and seeds in diet. 3. Patient will increase the fiber to 30 g 24 hours. We will start him on MiraLAX 34 g in AM and Metamucil 1 tbsp at bedtime. 4. The patient was continued on Prilosec 20 mg daily for next 3 months and then Transition to Zantac 150 mg p.o. b.i.d. after that. 5. The patient will be on Reglan 10 mg IV liquid b.i.d. and hold for side effects like tardive dyskinesia. 6. Patient will follow with us in clinic in 4 weeks of discharge. MTDD
[2016-08-12] MEDS ORDERED: LR 500 ML ONE (15:56)
[2016-08-12] MEDS: TOPROL XL PO SCH ×2 (17:51→20:21)
[2016-08-12] MEDS: HUMULIN R (PARKWAY) SUBQ SCH ×2 (17:51→20:46)
[2016-08-12] MEDS: KLOR-CON PO SCH (17:52)
[2016-08-12] MEDS: LYRICA PO SCH ×2 (17:52→20:21)
[2016-08-12] MEDS: COZAAR PO SCH (17:52)
[2016-08-12] MEDS: MIRALAX PO SCH (17:52)
[2016-08-12] MEDS: GLUCOTROL XL PO SCH (17:52)
[2016-08-12] MEDS: COLACE PO SCH ×2 (17:53→20:21)
[2016-08-12] MEDS: CARDIZEM CD PO SCH ×2 (17:53→20:21)
[2016-08-12] MEDS: PRILOSEC PO SCH (17:53)
[2016-08-12] MEDS: LIPITOR PO SCH (20:21)
[2016-08-12] MEDS: LEVAQUIN PO SCH (20:21)
[2016-08-12] MEDS: FLOMAX PO SCH (20:22)
[2016-08-12] MEDS ORDERED: COUMADIN PO ONE (21:00)
[2016-08-12] MEDS ORDERED: COUMADIN PO SCH (21:00)
[2016-08-13] MEDS: PRILOSEC PO SCH (06:10)
[2016-08-13] MEDS: HUMULIN R (PARKWAY) SUBQ SCH ×4 (07:22→21:15)
[2016-08-13] MEDS: SYMBICORT 160/4.5 MICROGM INHALER INH SCH ×2 (07:50→19:28)
[2016-08-13] MEDS: DUONEB (A & A) INH PRN ×2 (07:50→19:27)
--- NOTE | 2016-08-13 08:21 | PROGRESS NOTE ---
DATE: 08/13/2016 SUBJECTIVE: No complaints. Patient notes he is feeling a little bit better. He has no nausea or vomiting. Denies any blood in his stool or his urine. OBJECTIVE: Vital Signs: Reviewed. Temperature 98 degrees, pulse 99, respiratory 16, BP 131/62, saturating 94% on 2 L. General: Patient is well developed, well nourished. He is currently in no respiratory distress. He is awake, alert. Neck: Supple. CV: Regular rate. Chest: Relatively clear. Abdomen: Soft nondistended. Extremities: Moves all extremities. LABS: Reviewed and stable. ASSESSMENT: 1. Gastrointestinal bleed secondary to elevated INR and hemorrhoids. 2. Internal hemorrhoids. The patient had a colonoscopy that did not show any acute bleeding. EGD also was normal. 3. Lower gastrointestinal bleed, resolved. Secondary to internal hemorrhoids. 4. Left lower lobe pneumonia. Continue antibiotics for a total 7 day course. 5. Atrial fibrillation. Patient is currently on Coumadin. His INR is low. Will not bolus him at this point to allow his internal hemorrhoid time to stop bleeding. However, will restart his Coumadin as his colonoscopy was normal. 6. Diabetes. 7. Generalized weakness. PLAN: Patient currently is stable and okay for rehab. Will continue Levaquin for a total of 3 more days after today. No other changes made in his home medicines.
[2016-08-13] MEDS: CARDIZEM CD PO SCH ×2 (09:16→20:09)
[2016-08-13] MEDS: TOPROL XL PO SCH ×2 (09:16→20:10)
[2016-08-13] MEDS: LYRICA PO SCH ×2 (09:17→20:09)
[2016-08-13] MEDS: COLACE PO SCH ×2 (09:17→20:09)
[2016-08-13] MEDS: GLUCOTROL XL PO SCH (09:17)
[2016-08-13] MEDS: MIRALAX PO SCH (09:17)
[2016-08-13] MEDS: COZAAR PO SCH (09:17)
[2016-08-13] MEDS: KLOR-CON PO SCH (09:17)
[2016-08-13] MEDS: ULTRAM PO PRN (14:11)
[2016-08-13] MEDS: LEVAQUIN PO SCH (19:17)
[2016-08-13] MEDS: FLOMAX PO SCH (20:10)
[2016-08-13] MEDS: METAMUCIL POWDER PACKET PO SCH (20:10)
[2016-08-13] MEDS: LIPITOR PO SCH (20:10)
[2016-08-13] MEDS: COUMADIN PO SCH (20:10)
[2016-08-13] MEDS ORDERED: COUMADIN PO SCH (21:00)
[2016-08-14] MEDS: PRILOSEC PO SCH (06:14)
[2016-08-14] MEDS: HUMULIN R (PARKWAY) SUBQ SCH ×4 (06:18→21:28)
[2016-08-14] MEDS: GLUCOTROL XL PO SCH (08:07)
[2016-08-14] MEDS: COLACE PO SCH ×2 (08:07→20:52)
[2016-08-14] MEDS: KLOR-CON PO SCH (08:07)
[2016-08-14] MEDS: LYRICA PO SCH ×2 (08:07→20:52)
[2016-08-14] MEDS: MIRALAX PO SCH (08:08)
[2016-08-14] MEDS: DUONEB (A & A) INH PRN ×2 (08:15→20:09)
[2016-08-14] MEDS: SYMBICORT 160/4.5 MICROGM INHALER INH SCH ×2 (08:15→20:09)
[2016-08-14] MEDS: CARDIZEM CD PO SCH ×2 (08:16→20:52)
[2016-08-14] MEDS: COZAAR PO SCH (08:17)
[2016-08-14] MEDS: TOPROL XL PO SCH ×2 (08:17→20:52)
[2016-08-14 08:46] LABS: HEMATOCRIT 28.6 % (42.0-52.0); HEMOGLOBIN 8.5 g/dL (14.0-18.0); MCH 26.5 PG (27-31); MCHC 29.7 g/dL (33-37); MCV 89.1 FL (81-99); MPV 11.9 FL (7.4-10.4); RBC 3.21 XMIL (4.7-6.1)
--- NOTE | 2016-08-14 08:57 | PROGRESS NOTE ---
DATE: 08/14/2016 SUBJECTIVE: The patient feels fine. He has denies any GI or bleeding. Denies any change in his cough. He notes his breathing is better. OBJECTIVE: Vital Signs: Temperature 97, pulse 79, respiratory rate 18, blood pressure 123/70. General: Patient is a well developed, elderly male who is currently in no respiratory distress. He is awake, alert. He is in no distress. He is feeling better. HEENT: Normocephalic, atraumatic. Neck: Supple. CV: Regular rate. Chest: Relatively clear. Abdomen: Soft. LABS: Reviewed and stable. ASSESSMENT: 1. Lower gastrointestinal bleed secondary to hemorrhoids and elevated Coumadin, stable. 2. Hypercoagulopathy. Currently INR is slightly low. We will not restart Lovenox or bolus him on Coumadin to give his hemorrhoids time to continue to heal. However, will restart his Coumadin and allow it to equilibrate on its own. 3. Atrial fibrillation, rate controlled. Stable. We will continue to need Coumadin. 4. Diabetes, stable. 5. Acute renal failure, resolved. Currently at his chronic baseline status. PLAN: Patient has labs pending this morning. Should they be okay, he can be transferred to rehab when bed available.
[2016-08-14 09:07] LABS: ALBUMIN 2.6 g/dL (3.5-5.0); CALCIUM 8.5 mg/dL (8.8-10.2); POTASSIUM 4.7 mmol/L (3.5-5.1); TOTAL BILIRUBIN 0.2 mg/dL (0.20-1.00); TOTAL PROTEIN 6.2 g/dL (6.3-8.3)
[2016-08-14 09:19] LABS: INR 1.72 (0.86-1.15); PROTIME 20.4 Seconds (12.1-15.5)
[2016-08-14] MEDS: LEVAQUIN PO SCH (19:35)
[2016-08-14] MEDS: LIPITOR PO SCH (20:52)
[2016-08-14] MEDS: METAMUCIL POWDER PACKET PO SCH (20:52)
[2016-08-14] MEDS: COUMADIN PO SCH (20:52)
[2016-08-14] MEDS: FLOMAX PO SCH (20:52)
[2016-08-15] MEDS: PRILOSEC PO SCH (06:08)
[2016-08-15] MEDS: HUMULIN R (PARKWAY) SUBQ SCH ×4 (06:11→21:19)
[2016-08-15] MEDS: SYMBICORT 160/4.5 MICROGM INHALER INH SCH ×2 (08:05→20:30)
[2016-08-15] MEDS: DUONEB (A & A) INH PRN ×3 (08:10→20:30)
[2016-08-15] MEDS: TOPROL XL PO SCH ×2 (08:34→21:13)
[2016-08-15] MEDS: LYRICA PO SCH ×2 (08:34→21:13)
[2016-08-15] MEDS: COLACE PO SCH ×2 (08:34→21:13)
[2016-08-15] MEDS: COZAAR PO SCH (08:34)
[2016-08-15] MEDS: GLUCOTROL XL PO SCH (08:34)
[2016-08-15] MEDS: CARDIZEM CD PO SCH ×2 (08:34→21:13)
[2016-08-15] MEDS: KLOR-CON PO SCH (08:34)
[2016-08-15] MEDS: MIRALAX PO SCH (08:34)
--- NOTE | 2016-08-15 14:02 | PROGRESS NOTE ---
DATE: 08/15/2016 SUBJECTIVE: Patient without complaints. He is lying in bed. He is asleep, easily awakens. OBJECTIVE: Vital signs: Temp 98, pulse 73, respiratory 20, BP 121/69. General: The patient is well developed, well nourished, currently in no real respiratory distress. He is awake, alert, oriented. Neck: Supple. CV: Regular rate. Chest: Relatively clear. Abdomen: Soft. LABS: No new labs today. ASSESSMENT: 1. Moderate protein calorie malnutrition. 2. Diabetes. Blood sugars are much better in the 120s to 150. 3. Hypercoagulable. He is currently on Coumadin. Continue to await his INR to bump greater than 2. Will check in the a.m. 4. Acute hypoxic respiratory failure, stable. 5. Chronic renal failure with mild acute changes. Creatinine is currently baseline at 2.2. 6. Leukocytosis, resolved. PLAN: Will continue to follow his INRs, continue blood sugar control. Continue physical therapy. To rehab when available.
[2016-08-15] MEDS: OXY IR PO PRN (15:33)
--- NOTE | 2016-08-15 18:54 | PROGRESS NOTE ---
DATE: 08/14/2016 SUBJECTIVE: The patient is feeling good. Does not have any further hematochezia or any bleeding through urine. His breathing is better. OBJECTIVE: Vital Signs: Temperature 97 degrees, pulse 79, respiratory rate 18, blood pressure 120/70. General: Well developed elderly male in no acute respiratory distress. Awake, alert and oriented. HEENT: Conjunctival pallor present. Neck: Supple. Trachea midline. Heart and Lungs: Normal. Abdomen: No organomegaly. No ascites. No tenderness. No rebound or rigidity. Neurological: Intact. LABS: Reviewed and stable. IMPRESSION: 1. Lower gastrointestinal bleed secondary to hemorrhoidal bleeding. He had a colonoscopy and EGD. There was no evidence of any bleeding or old blood either in the stomach or colon so it is most likely related to Coumadin and hypercoagulability and hemorrhoids. 2. Hypercoagulability. It is being corrected. It is actually lower than therapeutic level. is trying to start him on Lovenox. 3. Atrial fibrillation rate controlled and stable. 4. Diabetes. 5. Acute renal failure resolved. He has chronic baseline status. There is no sign of any bleeding and it appears to be just hemorrhoidal and secondary to hypercoagulability, nothing to add. Will follow as needed.
[2016-08-15] MEDS: LEVAQUIN PO SCH (21:13)
[2016-08-15] MEDS: FLOMAX PO SCH (21:13)
[2016-08-15] MEDS: LIPITOR PO SCH (21:13)
[2016-08-15] MEDS: COUMADIN PO SCH (21:13)
[2016-08-15] MEDS: METAMUCIL POWDER PACKET PO SCH (21:14)
[2016-08-16] MEDS: PRILOSEC PO SCH (06:37)
[2016-08-16] MEDS: HUMULIN R (PARKWAY) SUBQ SCH ×4 (06:39→21:33)
[2016-08-16 07:00] LABS: HEMOGLOBIN 8.5 g/dL (14.0-18.0); MCH 27.4 PG (27-31); MCHC 30.4 g/dL (33-37); MCV 90.3 FL (81-99); MPV 11.9 FL (7.4-10.4); RBC 3.1 XMIL (4.7-6.1)
[2016-08-16 07:07] LABS: AGAP 11; ALBUMIN 2.5 g/dL (3.5-5.0); ALKALINE PHOSPHATASE 86 U/L (32-122); BUN 33 mg/dL (8-22); CALCIUM 8.7 mg/dL (8.8-10.2); CHLORIDE 105 mmol/L (98-107); COSMO 281; GOT 37 U/L (10-34); GPT 60 U/L (10-44); HDL 23 mg/dL (35-55); LDL 39 mg/dL; MAGNESIUM 1.7 mg/dL (1.5-2.7); POTASSIUM 5.1 mmol/L (3.5-5.1); SODIUM 137 mmol/L (136-145); TCO2 20 mmol/L (25-35); TOTAL PROTEIN 6.7 g/dL (6.3-8.3); TRIGLYCERIDES 96 mg/dL (39-160); VLDL 19 mg/dL
[2016-08-16 07:22] LABS: INR 2.45 (0.86-1.15); PROTIME 26.6 Seconds (12.1-15.5)
[2016-08-16] MEDS: DUONEB (A & A) INH PRN ×2 (08:03→19:22)
[2016-08-16] MEDS: SYMBICORT 160/4.5 MICROGM INHALER INH SCH ×2 (08:03→19:23)
[2016-08-16] MEDS: COLACE PO SCH ×2 (09:49→20:35)
[2016-08-16] MEDS: KLOR-CON PO SCH (09:49)
[2016-08-16] MEDS: LYRICA PO SCH ×2 (09:49→20:35)
[2016-08-16] MEDS: GLUCOTROL XL PO SCH (09:49)
[2016-08-16] MEDS: CARDIZEM CD PO SCH ×2 (09:50→20:34)
[2016-08-16] MEDS: MIRALAX PO SCH (09:52)
[2016-08-16] MEDS: COZAAR PO SCH (09:52)
[2016-08-16] MEDS: TOPROL XL PO SCH ×2 (09:53→20:35)
--- NOTE | 2016-08-16 10:40 | PROGRESS NOTE ---
DATE: 08/16/2016 SUBJECTIVE: Patient without any new complaints. Still states that he is tired and fatigued. Denies any change in his cough or congestion. OBJECTIVE: Vital Signs: Reviewed. Temperature 98 degrees, pulse 55, respiratory rate 18, BP 111/55, saturating 99% on 3 L. General: Patient is well developed, well nourished. Currently in no respiratory distress. He is awake, alert. Neck: Supple. CV: Regular rate. Chest: Relatively clear. Abdomen: Soft. Neurologic: No focal changes. Laboratory Data: INR 2.45. WBCs 11, hemoglobin and hematocrit 8 and 28. BUN 33, creatinine 2.3. Albumin 2.5. ASSESSMENT: 1. Moderate protein calorie malnutrition. 2. Left lower lobe pneumonia. Continue antibiotics. 3. Leukocytosis. We will continue to follow. 4. Diabetes. 5. Generalized weakness. 6. Atrial fibrillation. Continue diltiazem. PLAN: We will continue physical therapy. Continue to follow. We will recheck a chest x-ray today as his white count has increased slightly, uncertain etiology of this. We will continue to follow. Hopefully to rehab in the next few days. He was heme-positive secondary to his Coumadin being elevated. Currently, his is INR 2.5. He is having no bleeding. We will continue to keep his INR between 2 and 3. We will recheck this in the a.m. as well. He had a recent endoscopy and has no acute bleeding.
[2016-08-16 14:02] LABS: OCCULT BLOOD 1 NEGATIVE (NEGATIVE)
[2016-08-16] MEDS: METAMUCIL POWDER PACKET PO SCH (20:34)
[2016-08-16] MEDS: LEVAQUIN PO SCH (20:35)
[2016-08-16] MEDS: LIPITOR PO SCH (20:35)
[2016-08-16] MEDS: COUMADIN PO SCH (20:35)
[2016-08-16] MEDS: FLOMAX PO SCH (20:35)
[2016-08-17] MEDS: PRILOSEC PO SCH (06:01)
[2016-08-17] MEDS: HUMULIN R (PARKWAY) SUBQ SCH ×4 (06:10→22:20)
--- NOTE | 2016-08-17 08:11 | PROGRESS NOTE ---
DATE: 08/17/2016 SUBJECTIVE: Patient without any new complaints. States that he is feeling fine this morning. He has a mild cough but nothing unusual for him. OBJECTIVE: Vital signs: Temperature 98, pulse 58, respiratory 18, BP 124/59, saturation 97% on 3 L. General: Patient is a well-developed, elderly male who is in no current respiratory distress. He is awake, alert. Neck: Supple. CV: Regular rate. Chest: Relatively clear. Abdomen: Soft. Extremities: Moves all extremities but generalized weakness. DIAGNOSTIC DATA: Pending. ASSESSMENT: 1. Hypercoagulable state. Patient's INR recently was 2.45 which is where he needs to be. He had an issue with an elevated INR causing some heme-positive stools but colonoscopy and EGD were essentially negative with the exception of internal hemorrhoids. 2. Leukocytosis, resolved. 3. Left lower lobe pneumonia, improved. Patient is on p.o. Levaquin. 4. Acute on chronic renal failure. Likely this is his new baseline. 5. Hypoxic respiratory failure, stable. 6. Hypernatremia, stable. 7. Diabetes, stable. 8. Atrial fibrillation. PLAN: We will continue to await patient's insurance decision for him to transition to rehab. No other changes were made. We will continue to follow his INR.
--- NOTE | 2016-08-17 08:11 | Diag Imaging Result Document ---
PROCEDURE NAME: CHEST-PORTABLE - 08/17/2016 AP PORTABLE CHEST ERECT, 08/17/2016 AT 0629 HOURS: FINDINGS: There is calcific pleural plaque on the left. There is dextrocardia. The lungs are slightly better expanded than on 08/11/2016 and there is less apparent atelectasis on the right. IMPRESSION: Improved right upper lobe atelectasis.
[2016-08-17 08:17] LABS: HEMATOCRIT 29.7 % (42.0-52.0); MCH 26.7 PG (27-31); MCHC 30.3 g/dL (33-37); MCV 88.1 FL (81-99); MPV 12.1 FL (7.4-10.4); RBC 3.37 XMIL (4.7-6.1)
[2016-08-17] MEDS: DUONEB (A & A) INH PRN ×2 (08:28→19:45)
[2016-08-17] MEDS: SYMBICORT 160/4.5 MICROGM INHALER INH SCH ×2 (08:28→19:45)
[2016-08-17 08:32] LABS: ALBUMIN 2.6 g/dL (3.5-5.0); CALCIUM 8.7 mg/dL (8.8-10.2); POTASSIUM 5.3 mmol/L (3.5-5.1); TOTAL BILIRUBIN 0.2 mg/dL (0.20-1.00); TOTAL PROTEIN 6.5 g/dL (6.3-8.3)
[2016-08-17 08:35] LABS: INR 3.24 (0.86-1.15); PROTIME 32.9 Seconds (12.1-15.5)
[2016-08-17] MEDS: GLUCOTROL XL PO SCH (08:41)
[2016-08-17] MEDS: LYRICA PO SCH ×2 (08:41→22:19)
[2016-08-17] MEDS: TOPROL XL PO SCH ×2 (08:41→22:19)
[2016-08-17] MEDS: COLACE PO SCH ×2 (08:41→22:20)
[2016-08-17] MEDS: CARDIZEM CD PO SCH ×2 (08:41→22:19)
[2016-08-17] MEDS: COZAAR PO SCH (08:41)
[2016-08-17] MEDS: MIRALAX PO SCH (08:45)
[2016-08-17] MEDS: KLOR-CON PO SCH (08:45)
[2016-08-17] MEDS: LIPITOR PO SCH (22:19)
[2016-08-17] MEDS: LEVAQUIN PO SCH (22:19)
[2016-08-17] MEDS: FLOMAX PO SCH (22:19)
[2016-08-17] MEDS: METAMUCIL POWDER PACKET PO SCH (22:20)
[2016-08-18] MEDS: PRILOSEC PO SCH (06:01)
[2016-08-18] MEDS: HUMULIN R (PARKWAY) SUBQ SCH ×3 (06:02→15:50)
[2016-08-18 06:49] LABS: ALBUMIN 2.5 g/dL (3.5-5.0); CALCIUM 8.8 mg/dL (8.8-10.2); TOTAL BILIRUBIN 0.2 mg/dL (0.20-1.00); TOTAL PROTEIN 6.4 g/dL (6.3-8.3)
[2016-08-18 07:12] LABS: INR 3.37 (0.86-1.15); PROTIME 33.9 Seconds (12.1-15.5)
[2016-08-18] MEDS: DUONEB (A & A) INH PRN (07:26)
[2016-08-18] MEDS: SYMBICORT 160/4.5 MICROGM INHALER INH SCH (07:27)
[2016-08-18 08:17] VITALS: BP 106/52
--- NOTE | 2016-08-18 09:24 | PROGRESS NOTE ---
DATE: 08/18/2016 SUBJECTIVE: The patient is without complaints, notes that his breathing is okay. He denies any chest pains or palpitations, denies any fevers. PHYSICAL EXAM/OBJECTIVE: Vital signs: Reviewed. He is currently afebrile. Temp 98, pulse 64, respiratory rate 18, BP 108/48. General: The patient is well nourished, well developed. He is currently in no respiratory distress. He is awake, alert, oriented. Neck: Supple. CV: Regular rate. Chest: Relatively clear. LABS: INR elevated at 3.37. Otherwise, essentially unchanged. ASSESSMENT: 1. Acute on chronic renal failure. Serum creatinine has remained 2.2 to 3.5 throughout the hospital stay. 2. Acute hepatitis. Will check ultrasound of his abdomen. 3. Leukocytosis, improved. 4. Adult failure to thrive. The patient continues to need rehab. Will have to continue to wait on his insurance to approve. 5. Hypernatremia, resolved. 6. Atrial fibrillation, stable. 7. Left lower lobe pneumonia. We will repeat chest x-ray today and follow.
[2016-08-18] MEDS: GLUCOTROL XL PO SCH (10:04)
[2016-08-18] MEDS: CARDIZEM CD PO SCH (10:05)
[2016-08-18] MEDS: COLACE PO SCH (10:05)
[2016-08-18] MEDS: TOPROL XL PO SCH (10:06)
[2016-08-18] MEDS: LYRICA PO SCH (10:06)
[2016-08-18] MEDS: COZAAR PO SCH (10:06)
[2016-08-18] MEDS: MIRALAX PO SCH (10:50)
--- NOTE | 2016-08-18 10:56 | Diag Imaging Result Document ---
PROCEDURE NAME: US ABDOMEN-COMPLETE - 08/18/2016 ABDOMINAL ULTRASOUND: FINDINGS: No aneurysmal dilatation to the abdominal aorta. The inferior vena cava is poorly seen. The pancreas is also predominantly obscured. No focal hepatic abnormality. The common bile duct measures 4 mm. The gallbladder has been removed. Slightly distended right renal pelvis. No stones. Normal echotexture. There is a 2.6 cm cyst in the [id number] right kidney. No focal renal abnormality to the left kidney. No hydronephrosis. The spleen is poorly seen. No ascites. IMPRESSION: 1. Cholecystectomy. 2. Right renal cyst with slight distention of the renal pelvis.
[2016-08-18] MEDS: ULTRAM PO PRN (11:40)
[2016-08-18] MEDS: OXY IR PO PRN (13:05)
--- NOTE | 2016-08-18 16:53 | DISCHARGE SUMMARY ---
ADMISSION DATE: 08/03/2016 DISCHARGE DATE: 08/18/2016 DIAGNOSES: 1. Bilateral lower extremity deep vein thrombosis. 2. Diabetes mellitus type 2. 3. Chronic atrial fibrillation status post pacemaker placement. 4. Hypertension. 5. Enlarged prostate. 6. Acute kidney injury in the setting of chronic kidney disease. Serum creatinine has remained 2.2 to 3.5 throughout the hospital stay. 7. Acute hepatitis improving. 8. Left lower lobe pneumonia. CONSULTS: Dr. Bryant in Gastroenterology. DIAGNOSTICS: 08/03/2016 chest x-ray is stable. There is a pacemaker over the right lower chest. There is dextrocardia. There is no significant change in appearance of the chest. 08/03/2016 lung scan V/Q low probability for pulmonary embolus. 08/03/2016 bilateral lower extremity venous Doppler. Extensive bilateral lower extremity DVT. Portions in the left common femoral vein appear unstable, may be prone to quickly embolize. 08/06/2016 chest x-ray, left lower lobe atelectasis and/or pneumonia. 08/11/2016 chest x-ray, there is dextrocardia. The overall appearance of the chest is quite similar to that of the prior exam. 08/17/2016 chest x-ray, improved right upper lobe atelectasis. 08/18/2016 abdominal ultrasound, post cholecystectomy with a 2.6 cm right renal cyst. No aneurysmal dilatation to the abdominal aorta. Pancreas is no focal hepatic abnormality. Common bile duct measures 4 mm. PROCEDURES: 08/12/2016 EGD and colonoscopy revealed normal esophagus, retained food in the stomach suggesting gastroparesis. Normal duodenal bulb and second portion. Stool throughout the colon. Internal hemorrhoids. No evidence of active bleeding, fresh or old blood noted in the entire EGD and colonoscopy. MICROBIOLOGY: Blood cultures revealed no growth after 5 days. The urine revealed yeast. HOSPITAL COURSE: Mr. Candelario presented to the emergency room with cough and weakness for 3 days. He had a D-dimer of 6.3. V/Q scan revealed low probability for pulmonary embolus. Lower extremity Dopplers were performed which revealed bilateral extensive DVT. He does have chronic atrial fibrillation and he was supposed to be on warfarin at home although he stated that he has never been compliant on warfarin stating that he may take maybe 3 doses a week. His INR was 1.28. He was started on Lovenox 1 mg/kg and warfarin was titrated to INR for target INR of 2 to 3. His INRs at one time did increase to 6. Warfarin was held at this time. The last 3 days he is 2.45 to 3.37. Of note, he will complete a course of Levaquin in 3 days. INR will need to be watched closely as once Levaquin is stopped his INR we will drop most likely. He was found to have pneumonia. Blood cultures were negative. He received antibiotic coverage, Levaquin IV which has been transitioned over to p.o. along with DuoNeb q.4 hours as needed. We did continue his home inhalers, his home respiratory regimen. Of note, the patient does have a history of sleep apnea in the past. He did have a BiPAP machine but he states if fell off of a table and broke and it was never replaced. We have given supplemental oxygen and he has maintaining saturations in 94- 99%. He did have a drop in his hemoglobin and hematocrit down to 8 and 27 from 10 and 32 on admission. During this time is when his INR got up to 6. He underwent EGD and colonoscopy and was found to have internal hemorrhoids but no active bleeding. Hemoglobin and hematocrit are 9 and 29 today. He did have occult negative stools on the . We continued his Glucotrol and he was placed on pattern blood glucose, sliding scale insulin. We did hold his long-acting insulins as he was not eating regularly. This can be transitioned over in rehab once his appetite increases. We did monitor electrolytes and replete as appropriate. DISCHARGE MEDICATIONS: 1. Levaquin 250 mg every 24 hours. 2. Ultram 100 mg p.o. q.6 hours p.r.n. 3. Flomax 0.4 at bedtime. 4. Mylicon 80 p.r.n. 5. Metamucil 1 teaspoon at bedtime. 6. Lyrica 75 mg b.i.d. 7. MiraLAX 34 g daily. 8. Oxy IR 5 mg q.6 hours p.r.n. pain. 9. Prilosec 40 mg daily for 3 months. 10. Toprol-XL 25 mg b.i.d. 11. Cozaar 50 mg daily. 12. Glucotrol XL 10 mg daily. 13. Colace 100 mg b.i.d. 14. Cardizem CD 180 mg b.i.d. 15. Symbicort 164.5 two puffs b.i.d. 16. Lipitor 40 mg at bedtime. 17. DuoNeb q.4 hours p.r.n. 18. Warfarin 3 mg at bedtime. This is on hold as INR is 3.37. He is to have daily INRs and facility medical dir will instruct in restarting warfarin for target INR of 2-3 for atrial fibrillation. 19. He has currently received Levaquin. He will have 3 more days. DISCHARGE PHYSICAL EXAMINATION: Cardiovascular: Irregularly irregular rate and rhythm. S1 and S2 are appreciated. Pulmonary: Breath sounds are relatively clear with no increased work of breathing noted. Gastrointestinal: Abdomen is soft, nontender, nondistended. Bowel sounds in all 4 quadrants. Neurologic: He is alert and oriented x3. Extremities: No clubbing, cyanosis or edema. Calves are nontender. Pulses are palpable x4. Discharge Vital Signs: Blood pressure is 106/52 with a heart rate of 68, respirations are 20, temperature is 98.7 degrees oral with oxygen saturations of 93-95% on 3 L nasal cannula. DISCHARGE ACTIVITY: Per physical therapy with he needs to be in a chair for meals and p.r.n. DISCHARGE DIET: GI soft, with Glucerna shakes with each meal and at bedtime. FOLLOWUP: He is to follow up with Dr. Levin or Dr. Bryant in 4 weeks. He is being discharged to rehab in stable condition with family members present. This is a greater than 30 minute discharge. Dictated by YUVAL Gutierrez for Howard Shirley MD
== END 2016-08-18 18:39 | DRG 299 ==
LOC: P.ED 10:47 → P.MEDSURG 10:48
PROVIDERS: ATTEND Family Medicine
PROC: 0DJ08ZZ Inspection of Upper Intestinal Tract, Via Natural or Artificial Opening Endoscopic (ICD-10-PCS; principal; 2016-08-12 14:20)
PROC: 0DJD8ZZ Inspection of Lower Intestinal Tract, Via Natural or Artificial Opening Endoscopic (ICD-10-PCS; 2016-08-12 14:20)
DX: I82.413 Acute embolism and thrombosis of femoral vein, bilateral (principal); G93.41 Metabolic encephalopathy; J96.01 Acute respiratory failure with hypoxia; N17.9 Acute kidney failure, unspecified; J18.9 Pneumonia, unspecified organism; E44.0 Moderate protein-calorie malnutrition; E87.0 Hyperosmolality and hypernatremia; E11.43 Type 2 diabetes mellitus with diabetic autonomic (poly)neuropathy; D68.59 Other primary thrombophilia; K31.84 Gastroparesis; J44.0 Chronic obstructive pulmonary disease with (acute) lower respiratory infection; Q24.0 Dextrocardia; N39.0 Urinary tract infection, site not specified; B17.9 Acute viral hepatitis, unspecified; I82.431 Acute embolism and thrombosis of right popliteal vein; E11.22 Type 2 diabetes mellitus with diabetic chronic kidney disease; I48.2 Chronic atrial fibrillation; I12.9 Hypertensive chronic kidney disease with stage 1 through stage 4 chronic kidney disease, or unspecified chronic kidney disease; I82.403 Acute embolism and thrombosis of unspecified deep veins of lower extremity, bilateral; I25.10 Atherosclerotic heart disease of native coronary artery without angina pectoris; E78.5 Hyperlipidemia, unspecified; E11.65 Type 2 diabetes mellitus with hyperglycemia; K21.9 Gastro-esophageal reflux disease without esophagitis; G47.33 Obstructive sleep apnea (adult) (pediatric); N40.0 Benign prostatic hyperplasia without lower urinary tract symptoms; E87.6 Hypokalemia; N18.9 Chronic kidney disease, unspecified; D64.9 Anemia, unspecified; K29.70 Gastritis, unspecified, without bleeding; K57.30 Diverticulosis of large intestine without perforation or abscess without bleeding; K64.8 Other hemorrhoids; R62.7 Adult failure to thrive; E66.9 Obesity, unspecified; Z95.0 Presence of cardiac pacemaker; Z96.651 Presence of right artificial knee joint; T45.516A Underdosing of anticoagulants, initial encounter; Z91.128 Patient's intentional underdosing of medication regimen for other reason; Z68.30 Body mass index [BMI] 30.0-30.9, adult
CPT/HCPCS: 36415; 71010; 71020; 76700; 78582; 80048; 80053; 80061; 80162; 81001; 82270; 82805; 82948; 83735; 84100; 84443; 85025; 85027; 85379; 85610; 87040; 87088; 93970; 94640; 94660; 94761; 94762; 96372; A9539; A9540; J1450; J1650; J1815; J2270; J2370; J2405; J2543; J7030; J7040; J7120; 97110-GP; 97112-GP; 97530-GP